=== PATIENT | female | born 1990 | race Caucasian/White ===

== ENCOUNTER 2019-04-20 14:00 | Outpatient (RCR) | payer OTHER, SELFPAY | END 2019-07-11 23:59 | disposition home or self-care (01) | LOC: ANHDMC 14:00 | PROVIDERS: PCP Family Medicine | DX: O24.410 Gestational diabetes mellitus in pregnancy, diet controlled (principal); Z71.89 Other specified counseling; Z3A.00 Weeks of gestation of pregnancy not specified | CPT/HCPCS: G0108 ==

== ENCOUNTER 2020-05-21 12:13 | Outpatient (NON) | payer OTHER, SELFPAY ==
[2020-05-22 12:24] LABS: SARS-CoV-2 RNA PCR Negative
== END 2020-05-21 12:14 ==
LOC: ANHCOVIDDT 12:21
PROVIDERS: Visit Provider Physician Assistant Medical
DX: R05 Cough (principal); J02.9 Acute pharyngitis, unspecified; Z20.828 Contact with and (suspected) exposure to other viral communicable diseases
CPT/HCPCS: 87635; C9803; U0003

== ENCOUNTER 2021-01-16 09:07 | Outpatient (CLI) | payer OTHER, SELFPAY ==
--- NOTE | ~2021-01-16 | US_ITS ---
EXAMINATION: US thyroid DATE: 01/16/2021 09:44 INDICATION: Nontoxic single thyroid nodule. TECHNIQUE: Multiple ultrasound images of the thyroid were obtained. COMPARISON: None. FINDINGS: The right thyroid lobe measures 5.0 x 1.9 x 2.0 cm. The left thyroid lobe measures 4.8 x 1.2 x 2.0 c m. In the right thyroid lobe, there is a 2.7 cm solid, isoechoic, oetrx-fmpe-faod nodule with smooth margin without echogenic foci (TI-RADS TR3). In the left thyroid lobe, there is a 18 mm solid, hypoe choic, aeydj-ydan-htix nodule with lobulated margin and punctate echogenic focus (TR5). IMPRESSION: 1. Multinodular goiter. Ultrasound-guided fine-needle aspiration of 2 nodules is recommended. Reviewed, dictated and finalized at location A. IMPRESSION: 1. Multinodular goiter. Ultrasound-guided fine-needle aspiration of 2 nodules i s recommended.
--- NOTE | ~2021-01-16 | US_ITS ---
US abdomen limited DATE: 01/16/2021 09:45 INDICATION: Right upper quadrant abdominal pain and nausea TECHNIQUE: Real-time imaging and Doppler analysis of the liver, gallbladder, pancreas COMPARISON: 11/05/2017 complete abdominal ultrasound examination FINDINGS: No gallstones or gallbladder wall thickening or pericholecystic fluid collection. Negative sonographic Fish's sign. The common bile duct measures 2.9 mm, normal. No hepatic space-occupying mass lesion. Normal hepatopedal portal venous flow direction. The pancreas is largely obscured by bowel gas. IMPRESSION: Normal liver and gallbladder Pancreas is not optimally evaluated due to overlying bowel gas Reviewed, dictated and finalized at Location A. Reviewed, dictated and finalized at location A.
== END 2021-01-16 09:08 | disposition home or self-care (01) ==
LOC: ANHIMG 09:08
PROVIDERS: PCP Family Medicine; Visit Provider Family Medicine
DX: R10.11 Right upper quadrant pain (principal); E04.2 Nontoxic multinodular goiter
CPT/HCPCS: 76536; 76705

== ENCOUNTER 2021-02-11 11:00 | Outpatient (CLI) | payer OTHER, SELFPAY ==
--- NOTE | ~2021-02-11 | NM_ITS ---
EXAMINATION: NM hepatobiliary wo pharm DATE: 02/11/2021 13:57 INDICATION: Right upper quadrant abdominal pain. COMPARISON: Ultrasound 01/16/2021 TECHNIQUE: 5.2 mCi Tc-99m mebrofenin (Choletec) was administered intravenously. Scintigraphic images of the abdomen were obtained for one hour. Then, the patient drank 8 oz Ensure, and imaging was cont inued for 60 minutes. FINDINGS: There is normal clearance of radiotracer from the blood pool. There is homogeneous tracer u ptake by the liver. Activity progresses to the bowel and gallbladder. Gallbladder ejection fraction (GBEF) was 58%. Note that with this technique, normal GBEF >= 33%. IMPRESSION: 1. Normal hepatobiliary scintigraphy. Reviewed, dictated and finalized at location A.
== END 2021-02-11 11:01 | disposition home or self-care (01) ==
PROVIDERS: PCP Family Medicine; Visit Provider Family Medicine
DX: R10.11 Right upper quadrant pain (principal)
CPT/HCPCS: 78226; A9537

== ENCOUNTER 2021-02-19 09:26 | Outpatient (CLI) | payer OTHER, SELFPAY ==
--- NOTE | ~2021-02-19 | US_ITS ---
EXAMINATION: US FNA w image guidance, US FNA additional DATE: 02/19/2021 10:39 INDICATION: Bilateral nontoxic thyroid nodules TECHNIQUE: A time-out was performed to verify the patient's name, date of , and procedure to be performed . The procedure and its benefits and risks were discussed with the patient. Risks specifically discus sed included bleeding and infection. The patient understood the risks and agreed to proceed. The neck was prepped and draped in the usual sterile manner. Attention was first turned to the left thyroid n odule. 2 mL 1% lidocaine was used for local anesthesia. 6 passes were made with a 25G needle into th e lesion. Appropriate needle location was documented with continuous sonographic guidance. Attention was then turned to the right thyroid nodule. An additional 3 mL 1% lidocaine was used for local anes thesia. 6 passes were made with a 20 5G needle into the lesion utilizing continuous sonographic toro nce. Sterile bandages were applied. There were no immediate complications. FINDINGS: Grayscale ultrasound images demonstrate biopsy needles advanced into a 1.4 cm solid TI RADS 5 left th yroid nodule. Subsequent images demonstrate the biopsy needle advanced into the larger 3.0 cm TI RADS 3 right thyroid nodule. IMPRESSION: 1. Successful ultrasound-guided fine needle aspiration of a 1.4 cm TI RADS 5 left thyroid nodule. 2. Accessible ultrasound-guided fine-needle aspiration of a TI RADS 3 right thyroid nodule. . Reviewed, dictated and finalized at location A. IMPRESSION: 1. Successful ultrasound-guided fine needle aspiration of a 1.4 cm TI RADS 5 l eft thyroid nodule. 2. Accessible ultrasound-guided fine-needle aspiration of a TI RADS 3 right thy roid nodule. .
== END 2021-02-19 09:27 | disposition home or self-care (01) ==
PROVIDERS: PCP Family Medicine; Visit Provider Otolaryngology
DX: E04.2 Nontoxic multinodular goiter (principal)
CPT/HCPCS: 10005; 10006; 88173; 88305

== ENCOUNTER 2022-05-08 11:43 | Observation (INO) | payer OTHER, SELFPAY ==
[2022-05-08 12:11] VITALS: BP 124/66; PULSE 87
[2022-05-08 12:13] VITALS: BMI 40.4
[2022-05-08 12:15] VITALS: BP 132/66; PULSE 83
--- NOTE | 2022-05-08 12:20 | LDADM ---
This patient, Madison Cummings, was admitted to OB Post [facility] on 05/08/22 at 11:43. Plans for labor, pain management and were discussed with patient. Patient/family oriented to hospital policies and general routines including ID bracelet, bed and alarms, visiting hours, pain management, procedures, bathroom and other care routines, personal items, smoking policy, room service/diet and guest tray routines, infant security routines, and visiting hours. Patient/Family are encouraged to report perceived risks to care and to ask questions if they do not understand what they are told or what they should do. See OBIX for further documentation.
[2022-05-08] MEDS: TERBUTALINE SULFATE 1 MG/ML VIAL 0.25 MG SUB-Q (12:48)
--- NOTE | 2022-05-08 14:10 | PC.NURSE ---
Patient came in with a complaint of irvin. NST completed. Per Dr. Escobedo, terbutaline given and patient instructed to eat lunch. After interventions, patient denies feeling any contractions or pain. No contractions picked up on toco or palpated. Dr. Escobedo updated and verbal orders placed for discharge.
--- NOTE | 2022-05-19 12:16 | PM.OBTRLD ---
OB - Triage/Final Diagnosis Visit Information Comments/Additional reasons for admission: I have assessed the risk for this patient, Madison Cummings, and determined that she would benefit from observation care. Final Diagnosis (1) contractions: Code(s): O47.00 - False labor before 37 completed weeks of gestation, unspecified trimester Status: Acute
== END 2022-05-08 14:08 | disposition home or self-care (01) ==
PROVIDERS: Admitting Provider Obstetrics & Gynecology; PCP Family Medicine; Visit Provider Obstetrics & Gynecology
DX: O47.02 False labor before 37 completed weeks of gestation, second trimester (principal); Z3A.27 27 weeks gestation of pregnancy
CPT/HCPCS: 96372; G0378; G0379; J3105

== ENCOUNTER 2022-07-04 16:45 | Outpatient (CLI) | payer OTHER, SELFPAY ==
[2022-07-04] VITALS (7 sets, daily range): BP systolic 120–145; BP diastolic 67–73; PULSE 88–107; BMI 41.2
[2022-07-04] MEDS: KETOROLAC 30 MG/ML VIAL (*BKC) 10 MG IM (17:38)
[2022-07-04 17:47] LABS: Basophils Percent Auto 0.2 % (0.2-1.2); Eosinophils Absolute Auto 0.1 K/mm3 (0-0.3); Eosinophils Percent Auto 0.5 % (0-4.4); Hematocrit 32.8 % (37.0-47.0); Hemoglobin 10.9 g/dL (12.0-15.0); Immature Granulocyte Absolute 0.05 K/mm3 (0.00-0.031); Immature Granulocyte Percent A 0.5 % (0-0.5); Lymphocytes Absolute Auto 1.98 K/mm3 (0.9-3.2); Lymphocytes Percent Auto 19.6 % (18.3-44.2); Mean Corpuscular HGB Conc 33.2 g/dl (32-36); Mean Corpuscular Hemoglobin 29.9 pg (26-34); Mean Corpuscular Volume 90.1 fl (80-100); Mean Platelet Volume 9.9 fl (7.4-10.4); Monocytes Absolute Auto 0.9 K/mm3 (0.1-0.6); Monocytes Percent Auto 9.2 % (2.6-8.5); Neutrophils Absolute Auto 7.1 K/mm3 (1.3-6.7); Platelet Count Result 278 k/mm3 (150-375); Red Blood Count 3.64 M/mm3 (4.2-5.4); Red Cell Distribution Width 13.4 % (11.5-14.5); White Blood Count 10.1 K/mm3 (4.5-10.0)
[2022-07-04 17:48] LABS: Appearance Urine Slightly Cloudy (Clear); Bilirubin Urine Negative (Negative); Blood Urine Negative (Negative); Color Urine Yellow (Yellow); Glucose Urine UA Negative (Negative); Ketones Urine Negative (Negative); Leukocyte Esterase Ur Trace LEU/UL (NEGATIVE); Nitrate Urine Negative (Negative); Protein Urine Negative (Negative); Specific Grav Ur 1.015 (1.001-1.035); Urobilinogen Urine 0.2 mg/dL (<2.0)
--- NOTE | 2022-07-04 17:48 | PC.NURSE ---
Patient arrived on L&D unit with complaints of headache with 5/10 pain that has not improved after taking 1000mg of Tylenol at 1530. Spoke with Dr. Daniel Win regarding patient status. Discussed patient's headache, vitals, and FHT tracing. Verbal orders given for 10mg IM Toradol as well as PIH workup. If labs come back WNL, verbal orders to discharge given per Dr. Daniel Win.
[2022-07-04 17:50] LABS: Add Urine Microscopic? YES; Amorphous Sediment Urine Few; Bacteria Urine Trace /hpf; RBC Urine 0-2 /hpf (0-2); Squamous Epithelial Cell Urine Many /hpf (Few); WBC Urine 0-3 /hpf (0-3)
[2022-07-04 17:54] LABS: Creatinine Urine 37.4 mg/dL; Total Protein Urine Random 12 mg/dL; Ur Ttl Prot Creatinine Ratio 0.32 mg/mg (0-0.20)
[2022-07-04 18:05] LABS: Alanine Aminotransferase 15 U/L (6-35); Alkaline Phosphatase 156 U/L (38-126); Anion Gap 5 mmol/L (8-16); Aspartate Amino Transferase 17 U/L (14-36); Bilirubin,Total 0.3 mg/dL (0.2-1.3); Blood Urea Nitrogen 3 mg/dL (7-17); Calcium 8.6 mg/dL (8.4-10.2); Carbon Dioxide 20 mmol/L (22-30); Chloride 110 mmol/L (98-107); Estimated Glomerular Filt Rate > 60; Glucose 117 mg/dL (65-110); Potassium 3.9 mmol/L (3.4-5.0); Sodium 135 mmol/L (137-145); Uric Acid 4.9 mg/dL (2.5-7.5)
--- NOTE | 2022-07-04 18:40 | PC.NURSE ---
Plan of care discussed with patient. 24 hour urine collection reviewed with patient and instructions provided. Patient states understanding of instructions and plan of care and denies questions. Patient 24 hour urine started now. HIP precautions reviewed with patient and patient provided educational handout prior to leaving. Patient states understanding of instructions and precautions. Patient instructed to follow-up with Dr. Bansal in the office on 07/06/2022, patient states she already has an appointment scheduled with him that day. Patient instructed to return to OB unit if she experiences any worse symptoms or feels she needs to be evaluated sooner.
--- NOTE | 2022-07-04 18:46 | PC.NURSE ---
Notified Dr. Bansal of patient lab results. Order to start a 24 hour urine collection. Patient can complete urine collection for test at home and return the urine when completed. Patient to be instructed to follow-up on Wednesday07/06/2022.
== END 2022-07-04 18:43 | disposition home or self-care (01) ==
LOC: ANHOBOP 16:49 → ANHOBPP 07-09 06:29
PROVIDERS: PCP Family Medicine; Visit Provider Obstetrics & Gynecology
DX: R51.9 Headache, unspecified (principal); O13.9 Gestational [pregnancy-induced] hypertension without significant proteinuria, unspecified trimester; Z3A.00 Weeks of gestation of pregnancy not specified
CPT/HCPCS: 36415; 59025; 80053; 81001; 82570; 84156; 84550; 85025; 87086; 87088; 96372; 99199; J1885

== ENCOUNTER 2022-07-05 18:55 | Outpatient (NON) | payer OTHER, SELFPAY ==
[2022-07-05 19:14] VITALS: BMI 41.2
[2022-07-05 19:39] LABS: Total Volume 24 Hour Urine 4800 ml
[2022-07-05 19:43] LABS: Total Protein Urine Random 14 mg/dL
[2022-07-05 19:44] LABS: Creatinine 24 Hour Urine 1.2 gm/24 (0.8-1.8)
[2022-07-05 20:19] LABS: Total Protein Urine 24 Hr 672 mg/24hr (28-141)
== END 2022-07-05 18:56 | disposition home or self-care (01) ==
LOC: ANHOBOP 19:00
PROVIDERS: PCP Family Medicine; Visit Provider Obstetrics & Gynecology
DX: O13.9 Gestational [pregnancy-induced] hypertension without significant proteinuria, unspecified trimester (principal); Z3A.00 Weeks of gestation of pregnancy not specified
CPT/HCPCS: 81050; 82570; 84156

== ENCOUNTER 2022-07-14 14:42 | Inpatient (IN) | payer OTHER, SELFPAY ==
[2022-07-14 18:25] VITALS: BMI 41.6
[2022-07-14 18:47] LABS: Basophils Percent Auto 0.1 % (0.2-1.2); Eosinophils Absolute Auto 0.1 K/mm3 (0-0.3); Eosinophils Percent Auto 0.4 % (0-4.4); Hematocrit 36.6 % (37.0-47.0); Hemoglobin 12.2 g/dL (12.0-15.0); Immature Granulocyte Absolute 0.06 K/mm3 (0.00-0.031); Immature Granulocyte Percent A 0.5 % (0-0.5); Lymphocytes Absolute Auto 2.35 K/mm3 (0.9-3.2); Lymphocytes Percent Auto 19.6 % (18.3-44.2); Mean Corpuscular HGB Conc 33.3 g/dl (32-36); Mean Corpuscular Hemoglobin 29.3 pg (26-34); Monocytes Absolute Auto 0.8 K/mm3 (0.1-0.6); Monocytes Percent Auto 6.7 % (2.6-8.5); Neutrophils Absolute Auto 8.7 K/mm3 (1.3-6.7); Neutrophils Percent Auto 72.7 % (45.5-73.1); Platelet Count Result 327 k/mm3 (150-375); Red Blood Count 4.16 M/mm3 (4.2-5.4); Red Cell Distribution Width 13.5 % (11.5-14.5)
[2022-07-14] MEDS: LACTATED RINGERS 1,000 ML 125 ML IV CONT (18:52)
[2022-07-14] MEDS: CLINDAMYCIN 900 MG/D5W 50 ML 900 MG/50 ML PIGGYBACK 50 MG IVPB (18:53)
--- NOTE | 2022-07-14 20:01 | WPDANESEPP ---
Anes - Eval Pre Procedure Procedure: Labor epidural Date/Time: 07/14/22 20:01 Surgeon: Fanny Preop Diagnosis: Abdominal pain with contractions Pre Op Diagnosis: Labor Patient Data Age: 31 Gender: F Height: 1.63 m Weight: 110 kg Last Vital Signs O2 Del Method Room Air 07/14/22 18:25 Allergies Allergy/AdvReac Type Severity Reaction Status Date / Time amoxicillin Allergy Unknown Hives Verified 07/14/22 14:32 cephalexin Allergy Unknown Skin Verified 07/14/22 14:32 Reaction Penicillins Allergy Unknown Skin Verified 07/14/22 14:32 Reaction Home Medications Medication Instructions Recorded Confirmed Type prenat.vits,tyrell,ybr-pvhd-[id number] 1 tablet PO DAILY 04/17/22 07/14/22 History Laboratory Tests 07/14/22 07/14/22 07/14/22 18:34 18:34 18:34 WBC 12.0 K/mm3 H K/mm3 (4.5-10.0) RBC 4.16 M/mm3 L M/mm3 (4.2-5.4) Hgb 12.2 g/dL g/dL (12.0-15.0) Hct 36.6 % L % (37.0-47.0) MCV 88.0 fl fl (80-100) MCH 29.3 pg pg (26-34) MCHC 33.3 g/dl g/dl (32-36) RDW 13.5 % % (11.5-14.5) Plt Count 327 k/mm3 k/mm3 (150-375) MPV 10.0 fl fl (7.4-10.4) Immature Gran % (Auto) 0.5 % % (0-0.5) Neut % (Auto) 72.7 % % (45.5-73.1) Lymph % (Auto) 19.6 % % (18.3-44.2) Gallia % (Auto) 6.7 % % (2.6-8.5) Eos % (Auto) 0.4 % % (0-4.4) Baso % (Auto) 0.1 % L % (0.2-1.2) Lymph # (Auto) 2.35 K/mm3 K/mm3 (0.9-3.2) Gallia # (Auto) 0.8 K/mm3 H K/mm3 (0.1-0.6) Eos # (Auto) 0.1 K/mm3 K/mm3 (0-0.3) Baso # (Auto) 0.0 K/mm3 K/mm3 (0.0-0.1) Abs Immat Gran (auto) 0.06 K/mm3 H K/mm3 (0.00-0.031) Absolute Neuts (auto) 8.7 K/mm3 H K/mm3 (1.3-6.7) Absolute Nucleated RBC 0.0 K/mm3 K/mm3 (0.0-0.012) Nucleated RBC % 0.0 % % (0.0-0.2) RPR Pending Blood Type Pending Antibody Screen Pending : gestational age HCG: positive Patient hx anesthesia problems: none Family hx anesthesia problems: none Results Review: All pre-operative results and documents have been reviewed as part of the pre-operative evaluation. [facility] Past Medical History Medical History Anxiety and depression Gestational diabetes Obesity and not yet delivered Psoriasis Family History Family History Grandparent Uterine cancer Father Hypertension High cholesterol Mother FH: cholecystectomy Social History Social History Smoking status: Never smoker Substance use: never Lack of Transportation: No Lack of Food: Never True Current Housing: I Have Housing Concerned About Future Housing: No Difficulty Paying Gas/Electric Bills: No Difficulty Paying for Meds: No Currently Unemployed: No Education: Bachelor's Degree Difficulty w/ Childcare or Family Care: No Spiritual care concerns: No Exam Day of Procedure 07/14/22 20:01 Patient weight: morbidly obese Airway: Mallampati scale class II
[2022-07-15] VITALS (89 sets, daily range): BP systolic 74–161; BP diastolic 32–120; PULSE 25–147; RESP 16–18; TEMP 36.4–36.9; O2SAT 72–100
[2022-07-15] MEDS: CALCIUM CARBONATE (TUMS) 500 MG (200 MG ELEMENTAL) PO ×2 (01:10→16:56)
--- NOTE | 2022-07-15 07:53 | PM.IMHP ---
H&P: HPI History of Present Illness Date/Time: 07/15/22 07:53 Chief Complaint: labor Narrative: this is a 31 year 3 para 0202 whose last menstrual period was September 2026 EDC is 08/07/2022 confirmed by 8 week ultrasound, presents at 30 7 weeks gestation active labor. has been uncomplicated. She has had 2 previous spontaneous vaginal deliveries 1 complicated by HELLP syndrome she has changed her cervix from 3-5 cm on admission. She is interested in an epidural. [facility] Past Medical History Medical History Anxiety and depression Gestational diabetes Obesity and not yet delivered Psoriasis Family History Family History Grandparent Uterine cancer Father Hypertension High cholesterol Mother FH: cholecystectomy Social History Social History Smoking status: Never smoker Substance use: never Lack of Transportation: No Lack of Food: Never True Current Housing: I Have Housing Concerned About Future Housing: No Difficulty Paying Gas/Electric Bills: No Difficulty Paying for Meds: No Currently Unemployed: No Education: Bachelor's Degree Difficulty w/ Childcare or Family Care: No Spiritual care concerns: No Meds Home Medications and Allergies Home Medications Medication Instructions Recorded Confirmed Type prenat.vits,tyrell,avn-nvhb-dzomh 1 tablet PO DAILY 04/17/22 07/14/22 History Allergies Allergy/AdvReac Type Severity Reaction Status Date / Time amoxicillin Allergy Unknown Hives Verified 07/14/22 14:32 cephalexin Allergy Unknown Skin Verified 07/14/22 14:32 Reaction Penicillins Allergy Unknown Skin Verified 07/14/22 14:32 Reaction Vital Signs Vital Signs - 24 hr 07/14/22 18:25 07/15/22 01:52 07/15/22 01:53 Temperature Pulse Rate 92 Blood Pressure 125/74 Pulse Oximetry 99 Oxygen Delivery Room Air 07/15/22 02:00 Temperature 97.5 F L Pulse Rate Blood Pressure Pulse Oximetry Oxygen Delivery Exam Const: General: cooperative, healthy appearing and comfortable Nutritional Appearance: overweight Orientation/consciousness: oriented to person, oriented to place and oriented to time HENMT: Head: normal to inspection Resp: Effort & Inspection: normal respiratory effort Cardio: Rate: regular rate Rhythm: regular rhythm Heart sounds: S1 normal heart sound present and S2 normal heart sound present GI: Inspection: normal to inspection : External Female Exam: normal external appearance Speculum Exam - Vagina: normal appearance of the vagina Speculum Exam - Cervix: normal appearance of the cervix ( Cervix 5/90/1. AROM clear. FHTs were reassuring) H&P: Results Labs Labs: Short CBC 07/14/22 Range/Units 18:34 WBC 12.0 H (4.5-10.0) K/mm3 Hgb 12.2 (12.0-15.0) g/dL Hct 36.6 L (37.0-47.0) % Plt Count 327 (150-375) k/mm3 Assessment and Plan Assessment and plan (1) Active labor at term: Status: Acute Plan spontaneous vaginal delivery is expected. She has an epidural candidate
[2022-07-15] MEDS: LACTATED RINGERS 1,000 ML 125 ML IV CONT ×2 (08:06→08:41)
[2022-07-15] MEDS: fentaNYL CITRATE INJ (*CRX) 100 MCG/2 ML VIAL IV PUSH (08:07)
[2022-07-15 09:52] LABS: Rapid Plasma Reagin Non-Reactive (NonReactive)
--- NOTE | 2022-07-15 10:14 | PM.OBPRVD ---
OB - Delivery Note Procedure Delivery date: 07/15/22 Induction method: None Delivery augmentation: Rupture of Membranes and Pitocin Delivery monitor: Internal FHT and Internal Uterine Route of delivery: Episiotomy description: None Laceration Description: None Quantitative Blood Loss (ml): 60 Anesthesia type: Epidural Disposition: Floor Baby Date of : 07/15/22 Time of : 10:06 Weeks of gestation at delivery: 36 gender: Female presentation: vertex position: Right Occiput Posterior Placenta delivery description: Spontaneous Cord Vessel Description: 3 Vessels, Nuchal Cord, Loose and Delayed Cord Clamping score one minute: 8 score five minutes: 9 Narrative: clinda x 1
[2022-07-15] MEDS: OXYTOCIN 30 UNITS/NS 500 ML 30 UNITS/500 ML BAG 125 UNITS IV CONT (12:00)
--- NOTE | 2022-07-15 12:44 | PC.NURSE ---
Patient transferred to post room #279 via wheelchair. Support person present. Oriented to unit, room, information board, rooming in, admission packet and security measures. Patient verbalizes understanding.
[2022-07-15] MEDS: SODIUM CHLORIDE 0.9% IV 300 ML 600 ML I-UTERINE (12:56)
[2022-07-15] MEDS: IBUPROFEN 600 MG TABLET PO ×2 (13:12→21:10)
[2022-07-16 03:04] VITALS: BP 106/62; PULSE 75; RESP 16; TEMP 36.6; O2SAT 97
[2022-07-16] MEDS: IBUPROFEN 600 MG TABLET PO ×3 (03:45→17:32)
[2022-07-16 05:26] LABS: Hematocrit 29.7 % (37.0-47.0); Hemoglobin 9.9 g/dL (12.0-15.0)
[2022-07-16 07:30] VITALS: BP 129/79; PULSE 78; RESP 20; TEMP 36.5; O2SAT 100
--- NOTE | 2022-07-16 07:30 | PC.NURSE ---
PT introductions made and plan of care discussed per post , pain management, breast feeding, daily care activities. PT and spouse both recipients of such instructions and no barriers to learning identified at this time. PT received such instructions this shift via one to one discussion, mom baby care guide and demonstrations. PT verbalized understanding of such care.
--- NOTE | 2022-07-16 07:39 | PM.DS ---
DS: Admitting Diagnosis Discharge Date 07/16/2022 Admitting Diagnosis Pre term labor DS: Discharge Diagnosis Discharge Diagnosis (1) labor with term delivery: Code(s): O60.20X0 - Term delivery with labor, unspecified trimester, not applicable or unspecified Status: Acute DS: Summary Hospital Course Reason for hospitalization: active labor at 36 and 5 7th weeks gestation Hospital Course: the patient was admitted at 36 and 5 7th weeks gestation on 07/15/2022. She underwent spontaneous vaginal delivery with a dose of clindamycin and epidural anesthesia. Her 48hour course was unremarkable. She remained afebrile. She was up, voiding without difficulty, ambulated, breast-feeding, voiding without difficulty, generally without complaints. Time Spent with Patient Time attestation: Total time spent providing and/or coordinating discharge services: Exam Const: General: cooperative, healthy appearing, comfortable and overweight Orientation/consciousness: oriented to person, oriented to place and oriented to time HENMT: Head: normal to inspection Resp: Effort & Inspection: normal respiratory effort Cardio: Rate: regular rate Rhythm: regular rhythm Heart sounds: S1 normal heart sound present and S2 normal heart sound present GI: Inspection: normal to inspection ( Fundus firm below the umbilicus) DS: Data Data Completed and Pending Labs on day of discharge: Labs from last 24 hours 07/16/22 07/14/22 03:45 18:34 Hgb 9.9 L Hct 29.7 L RPR Non-reactive Discharge Plan Discharge Attending physician on discharge: Varun Ball Discharging Clinician: Varun Ball Patient Disposition: Home, Self-Care Activity: may shower, no straining and pelvic rest Diet: heart healthy Wound Care Instructions: follow printed instructions Discharge Instructions: Education: Mom and Baby Guide Given to: Mother Follow-Up: Call your delivering provider's office for an appointment to be seen in: 4 Weeks Mom [facility] follow-up [facility]. Appointment Date/Time: July 18, 2022 at 10:00 am What to expect at your follow-up visit: Blood Pressure Check Call [phone] if you are unable to keep your appointment time. BREAST CARE: * Wear a snug supportive bra. * For engorgement discomfort: Breast Feeding: * Apply warm moist washcloths * Express milk as needed to relieve engorgement * Wear loose clothing Bottle Feeding: * May apply ice packs * For sore nipples: * Identify correct latch-on * Apply warm moist washcloths before and after nursing * Air dry nipples after nursing * May apply Lansinoh cream to nipples PERINEAL CARE: * Until bleeding stops, use your sukumar bottle after urinating * Change your pad frequently throughout the day * You may take sitz baths several times a day (fill your bathtub with warm water and soak for 20 minutes.) Do NOT bathe in the water * No tub baths until seen by your physician - You may shower ACTIVITY: * Rest as much as possible. * Do not exercise or lift anything heavier than your baby (such as laundry or other children.) * Avoid stairs or driving as much as possible. * Do not put anything into the vagina. No douching, tampons, or sexual activity until seen by physician. NOTIFY PHYSICIAN IF YOU HAVE ANY QUESTIONS OR IF ANY OF THE FOLLOWING SYMPTOMS OCCUR: * If your perineum becomes red, swollen, or more painful than what you have experienced in the hospital. * If your vaginal bleeding becomes foul smelling. * If your vaginal bleeding becomes more heavy than a period or if your bleeding changes from pink to bright red. However, you may pass an occasional walnut-sized clot once or twice for the first week . * If you experience a sharp, shooting pain in you calves. * If
--- NOTE | 2022-07-16 07:42 | PM.OBPNVD ---
OB - PN: Subj Subjective Date/time seen: 07/16/22 07:42 Patient comments: no complaints and pain well controlled baby status: doing well and nursing well OB - PN: Obj Data Labs 07/16/22 03:45 Labs: Laboratory Results - last 24 hr 07/14/22 07/16/22 18:34 03:45 Hgb 9.9 L Hct 29.7 L RPR Non-reactive OB - PN A/P Plan day: 1 Plan: routine care Time Spent With Patient Time: Total time spent is greater than 50% in coordination of care (as documented) at patient's floor/unit and/or counseling patient: Time with patient: less than 15 minutes Exam Const: General: cooperative, healthy appearing, comfortable and overweight Orientation/consciousness: oriented to person, oriented to place and oriented to time HENMT: Head: normal to inspection Resp: Effort & Inspection: normal respiratory effort GI: Inspection: normal to inspection ( fundus firm below the umbilicus)
--- NOTE | 2022-07-16 10:32 | PC.NURSE ---
[id number] Introductions were made, then consulted with patient to assess needs related to . Mother led the conversation with her?plans to feed?her infant, the?experience so far and her experience with her previous infants that were . Resources provided for inpatient and outpatient services with a mom/baby guide. Mother voiced understanding of information and is receptive to conversation regarding her infant that is not waking to eat. Mother works well with her infant, demonstrates many abilities to stimulate her infant to wake, supports her breast and she was encouraged to wait for a big, open, wide gape before latching. Mother states she has breastfed with no pain. Reviewed signs of adequate intake using the pie demonstration, output, jaundice, late behaviors, blood sugars and waking to breastfeed every 2-3 hours. Mother demonstrated understanding of hand expression for milk stimulation and encouraging to breastfeed. Mother voiced understanding to call if she has difficulty waking to effectively breastfeed, if there is pain with the latch and that she is confident with . Reported to the primary RN.
[2022-07-16] MEDS: DOCUSATE SODIUM 100 MG CAPSULE PO ×2 (11:02→17:32)
[2022-07-16] MEDS: MULTIVIT/MIN/PREN/FOL AC/IRON TABLET 1 TAB PO (11:02)
[2022-07-16] MEDS: ACETAMINOPHEN 325 MG TABLET 650 MG PO ×2 (11:03→17:34)
[2022-07-16] MEDS: POLYSACCHARIDE IRON COMPLEX 150 MG CAPSULE PO ×2 (11:03→17:34)
[2022-07-16] MEDS: LANOLIN (LANSINOH) 7.5 GM CREAM 1 APPLIC TOPICAL (11:04)
--- NOTE | 2022-07-16 13:35 | PC.NURSE ---
[id number] Patient called RN to the room to assess latch. Upon entering the room was crying and mother states the latch was just missed. Mother made several attempts to breastfeed with her late infant. Mother hand expresses milk to the infant. is either crying, resting with a closed mouth or mother is attempting to latch. Mother waits for a big, open mouth;however, doesn't open wide enough with the tongue down to latch optimally most of the time. Mother acknowledges understanding by demonstrating great efforts to latch her infant. latched optimally once, had one suck with a swallow, then stopped and let go of the nipple. Encouraged mother to change positioning while learning related to the misshaped nipple after a latch with mother attempting to shove more breast into 's mouth. Mother is confident to continue practicing. Reviewed milk production and calling for a latch assessment, if infant doesn't wake to , doesn't maintain latch with a suck/swallow ratio or there's pain with the latch. Reported to the Primary RN.
--- NOTE | 2022-07-16 14:31 | PC.NURSE ---
[id number] Consulted with patient to assess needs related to . Mother led conversation with her experience with feeding baby so far. Mother works well with her infant with encouragement. Reviewed working with , supporting breast and how to protect the nipples with an optimal deep latch, good positioning, and good hand washing. Encouraged understanding the benefits of skin to skin, hand expression, responding to feeding cues, frequencies of feeding 8-12 times in 24 hours (approximately 2-3 hours), duration of feedings, milk production, intake/output feeding sheet and signs of adequate intake encouraging swallowing at the breast. Reviewed positioning and alignment, supporting breast, off-centered (asymmetrical latch) and leading with the chin with big, open, wide gape. latched shallow and was sleepy and reluctant. A feeding was charted at 1300 but patient didn't call for an assessment. Nipple care reviewed with optimal latch, good positioning and using clean hands when feeding her and touching her breast. Mother held infant to her chest while hand expressed colostrum. was spoon fed 10mls of colostrum allowing to use her tongue to lap up the milk. was placed skin to skin, mother was encouraged to feeding infant every 2 hours in the daytime, every 3 at night. Reviewed milk production with , hand expression or pumping. Reviewed the many options of feeding her baby and encouraged paced bottle feeding if she uses a bottle. Risks and benefits were discussed regarding use of pacifier, bottle and late behaviors and care. Resources used to facilitate learning were used from the tool/mom and baby guide. Mother voiced understanding of the education shared, to call for assistance if the infant does not latch or if there is discomfort with . Reported to the primary RN.
[2022-07-16 19:20] VITALS: BP 126/59; PULSE 82; RESP 18; TEMP 36.9; O2SAT 100
[2022-07-17 07:23] VITALS: BP 119/63; PULSE 71; RESP 16; TEMP 36.7; O2SAT 99
--- NOTE | 2022-07-17 07:43 | PC.NURSE ---
PT introductions made and plan of care discussed per post , pain management, breast feeding, daily care activities and pending discharge to home. PT and spouse both recipients of such instructions and no barriers to learning identified at this time. PT received such instructions this shift via one to one discussion, mom baby care guide and demonstrations. PT verbalized understanding of such care.
--- NOTE | 2022-07-17 08:56 | PM.OBPNVD ---
OB - PN: Subj Subjective Date/time seen: 07/17/22 08:56 Patient comments: no complaints and pain well controlled baby status: doing well and nursing well OB - PN: Obj Data Labs 07/16/22 03:45 OB - PN A/P Plan day: 2 Plan: routine care, discharge home and follow up 6 weeks Time Spent With Patient Time: Total time spent is greater than 50% in coordination of care (as documented) at patient's floor/unit and/or counseling patient: Time with patient: less than 15 minutes Exam Resp: Effort & Inspection: normal respiratory effort Cardio: Rate: regular rate Rhythm: regular rhythm Heart sounds: S1 normal heart sound present and S2 normal heart sound present GI: Inspection: normal to inspection
[2022-07-17] MEDS: ACETAMINOPHEN 325 MG TABLET 650 MG PO (09:33)
[2022-07-17] MEDS: MULTIVIT/MIN/PREN/FOL AC/IRON TABLET 1 TAB PO (09:33)
[2022-07-17] MEDS: POLYSACCHARIDE IRON COMPLEX 150 MG CAPSULE PO (09:33)
[2022-07-17] MEDS: DOCUSATE SODIUM 100 MG CAPSULE PO (09:33)
[2022-07-17] MEDS: IBUPROFEN 600 MG TABLET PO (09:34)
--- NOTE | 2022-07-17 10:15 | PC.NURSE ---
Pt received discharge instructions per protocol and verbalized understanding of such care.
--- NOTE | 2022-07-17 10:42 | PC.NURSE ---
[id number] Mother led the conversation with her experience, plan to feed her so far and her ability to independently latch optimally without discomfort. Encouraged RN latch assessment. Mother latched to the left breast using cross cradle. RN visualizes mouth less than 90 degrees, infant is sleepy, reluctant and rare suck/swallow. Infant was detached and nipple was misshaped. Mother will latch to the left breast using the football positioning. Infant effectively latched and had an adequate suck/swallow ratios. Mother was encouraged to keep actively . Discussion was initiated related to the 's jaundice increasing and no stool since 0700 07/16/2022. Discussed with mother the importance of getting to latch optimally with effective to improve stooling. Discussed the risks and benefits of bottle feeding. Reviewed milk production, hand expression and pumping. Risks and benefits were discussed regarding pumping and mother states she is familiar with pumping because she has a history of that practice with her other children. Mother understands stimulating to eat if needed. meets the outcomes for weight, output (4 stools before 07/16 0700 with sofa inspector exam done for the day) and jaundice at this time. Mother states she is confident to continue effectively , will pump and feed if doesn't latch well, and she is prepared to supplement with formula going home with her if it is needed. Mother has been hand expressing colostrum and feeding her . She is requesting to pump at this time. Breast pump provided due to mothers request. Instructions given on cleaning, care, usage, that there should be no pain, pumping schedule for milk production, collection, and storage of human milk. Mother is encouraged to record pumping schedule on the feeding sheet. Patient was assessed for correct placement, flange size, to pump for comfort and nipple stretching/stimulation for adequate milk production every 3 hours (8 times in 24 hours) 1-2 times at night. 10mls of human milk expressed was paced bottle fed to the . Reinforced understanding of milk production, transition of milk, signs of adequate intake, transition of stool, prevention/relief of engorgement, responsive watching for feeding cues, the different methods of stimulating to breastfeed 2-3 hours after the start of the last feeding, community resources, medication information reviewed per [facility] and when to call a provider using the resource of the mom and baby guide. Mother voiced understanding of the education shared. Reported to the primary RN.
--- NOTE | 2022-07-17 11:00 | PC.NURSE ---
PT discharged to home ambulatory accompanied by spouse and and taken to waiting car. Follow up appts confirmed
[2022-07-18 10:37] VITALS: BP 131/67; PULSE 85; RESP 18; TEMP 36.9; O2SAT 100
== END 2022-07-17 11:00 | disposition home or self-care (01) | DRG 807 ==
LOC: ANHLDR 17:54 → ANHOB2 07-15 12:46
PROVIDERS: Obstetrics & Gynecology; Admitting Provider Obstetrics & Gynecology; PCP Family Medicine; Visit Provider Obstetrics & Gynecology
DX: O60.14X0 Preterm labor third trimester with preterm delivery third trimester, not applicable or unspecified (principal); Z37.0 Single live birth; Z3A.36 36 weeks gestation of pregnancy; O36.8330 Maternal care for abnormalities of the fetal heart rate or rhythm, third trimester, not applicable or unspecified; O69.81X0 Labor and delivery complicated by cord around neck, without compression, not applicable or unspecified
CPT/HCPCS: 36415; 85014; 85018; 85025; 86592; 86850; 86900; 86901; A9270; J2590; J2795; J3010; J7030; J7120

== ENCOUNTER 2023-02-11 17:51 | Emergency (ER) | payer OTHER, SELFPAY ==
--- NOTE | 2023-02-11 17:56 | ED.URI ---
HPI - URI/Sore Throat General Chief Complaint: Upper Respiratory Infection Stated Complaint: Cold symptoms;Ear ache Time Seen by Provider: 02/11/23 17:56 Source: patient Mode of arrival: ambulatory Limitations: no limitations History of Present Illness HPI Narrative: Patient is a 32-year-old female who presents with 1 week of congestion, sore throat, productive cough and ear pain/pressure. Denies any fevers, chills, nausea, vomiting, diarrhea. Patient has been taking DayQuil, NyQuil, Sudafed and does take a daily Claritin. Patient is also had a hoarse voice. Patient reports cough has been keeping her up at night. Related Data Home Medications Medication Instructions Recorded Confirmed escitalopram oxalate 10 mg tablet 10 mg PO 11/19/22 11/19/22 Allergies Allergy/AdvReac Type Severity Reaction Status Date / Time amoxicillin Allergy Unknown Hives Verified 11/19/22 15:53 cephalexin Allergy Unknown Skin Verified 11/19/22 15:53 Reaction Penicillins Allergy Unknown Skin Verified 11/19/22 15:53 Reaction Review of Systems Review of Systems: All systems reviewed & are unremarkable except as noted in HPI and below Constitutional: Constitutional: Denies body ache(s), Denies chills, Denies fatigue, Denies fever(s), Denies headache(s), Denies malaise and Denies weakness Eyes: Eyes: Denies blurry vision, Denies itchy eyes and Denies loss of vision ENT: Reports otalgia, Denies headache(s), Reports hoarseness, Reports nasal congestion, Denies sinus pain and Reports sore throat Cardiovascular: Cardiovascular: Denies chest pain, Denies irregular heart rhythm and Denies dyspnea Respiratory: Respiratory: Reports cough and Denies dyspnea Gastrointestinal: Gastrointestinal: Denies abdominal pain, Denies diarrhea, Denies nausea and Denies vomiting Musculoskeletal: Musculoskeletal: Denies back pain, Denies myalgias and Denies arthralgias Integumentary/Breasts: Skin/Breast: Denies pruritus and Denies rash Neurologic: Denies headache(s), Denies loss of vision and Denies weakness Psychiatric: Psychiatric: Reports no additional psychiatric complaints Endocrine: Endocrine: Denies fatigue Allergic/Immunologic: Allergic/Immunologic: Denies itchy eyes PMFSH Past Medical History Medical History Anxiety and depression Gestational diabetes Obesity and not yet delivered Psoriasis Family History Family History Grandparent Uterine cancer Father Hypertension High cholesterol Mother FH: cholecystectomy Social History Social History Smoking status: Never smoker Substance use: never Lack of Transportation: No Lack of Food: Never True Current Housing: I Have Housing Concerned About Future Housing: No Difficulty Paying Gas/Electric Bills: No Difficulty Paying for Meds: No Currently Unemployed: No Education: Bachelor's Degree Difficulty w/ Childcare or Family Care: No Spiritual care concerns: No Comments At time of signature, agree with nursing past medical, surgical, social and family history. There is no relevant family history pertinent to the presenting complaint. Exam Const: General: cooperative, healthy appearing, comfortable, no acute distress and well nourished Nutritional Appearance: well nourished Orientation/consciousness: patient oriented x3 Limitations: no limitations HENMT: Head: normal to inspection, normocephalic and atraumatic Ears: hearing grossly normal bilaterally, external ears normal, TM's normal bilaterally, EAC's normal and no periauricular adenopathy Face/Nose/Sinus: Normal external nose present, Abnormal mucous membranes and turbinates present erythematous bilateral and diffuse, normal facial exam, sinuses nontender and face symmetric Face and sinus: normal facial exam, sinuses nontender
[2023-02-11 17:58] VITALS: BP 114/94; PULSE 71; RESP 16; TEMP 36.6; O2SAT 99
== END 2023-02-11 18:17 | disposition home or self-care (01) ==
PROVIDERS: Emergency Provider Nurse Practitioner Family; PCP Family Medicine
DX: J06.9 Acute upper respiratory infection, unspecified (principal); R05.9 Cough, unspecified; F41.9 Anxiety disorder, unspecified; F32.A Depression, unspecified; E66.9 Obesity, unspecified; Z68.36 Body mass index [BMI] 36.0-36.9, adult; L40.9 Psoriasis, unspecified
CPT/HCPCS: 99213; G0463

== ENCOUNTER 2023-04-13 08:16 | Outpatient (CLI) | payer OTHER, SELFPAY ==
[2023-04-13 19:58] LABS: Alanine Aminotransferase 18 U/L (6-35); Albumin Level 4.2 g/dL (3.5-5.1); Alkaline Phosphatase 118 U/L (38-126); Anion Gap 5 mmol/L (8-16); Aspartate Amino Transferase 25 U/L (14-36); Bilirubin,Total 0.7 mg/dL (0.2-1.3); Blood Urea Nitrogen 11 mg/dL (7-17); Calcium 9.2 mg/dL (8.4-10.2); Carbon Dioxide 29 mmol/L (22-30); Chloride 102 mmol/L (98-107); Cholesterol 184 mg/dL (0-200); Estimated Glomerular Filt Rate > 60; Glucose 96 mg/dL (65-110); HDL Direct 46 mg/dL; Potassium 5.3 mmol/L (3.4-5.0); Sodium 136 mmol/L (137-145); Triglycerides 128 mg/dL (<150)
[2023-04-13 20:08] LABS: LDL Cholesterol Direct 107 mg/dL
[2023-04-13 20:20] LABS: Thyroid Stimulating Hormone 0.791 uIU/mL (0.465-4.680)
[2023-04-13 20:49] LABS: Basophils Percent Auto 0.1 % (0.2-1.2); Eosinophils Absolute Auto 0.1 K/mm3 (0-0.3); Eosinophils Percent Auto 0.7 % (0-4.4); Hematocrit 43.4 % (37.0-47.0); Hemoglobin 14.2 g/dL (12.0-15.0); Immature Granulocyte Absolute 0.02 K/mm3 (0.00-0.031); Immature Granulocyte Percent A 0.3 % (0-0.5); Lymphocytes Absolute Auto 1.73 K/mm3 (0.9-3.2); Lymphocytes Percent Auto 23.8 % (18.3-44.2); Mean Corpuscular HGB Conc 32.7 g/dl (32-36); Mean Corpuscular Volume 91.6 fl (80-100); Mean Platelet Volume 9.9 fl (7.4-10.4); Monocytes Absolute Auto 0.6 K/mm3 (0.1-0.6); Monocytes Percent Auto 8.5 % (2.6-8.5); Neutrophils Absolute Auto 4.8 K/mm3 (1.3-6.7); Neutrophils Percent Auto 66.6 % (45.5-73.1); Platelet Count Result 326 k/mm3 (150-375); Red Blood Count 4.74 M/mm3 (4.2-5.4); Red Cell Distribution Width 12.4 % (11.5-14.5); White Blood Count 7.3 K/mm3 (4.5-10.0)
[2023-04-13 22:36] LABS: Hemoglobin A1C 5.3 % (<5.7)
== END 2023-04-13 08:17 | disposition home or self-care (01) ==
LOC: ANHGOSHLAB 08:17
PROVIDERS: PCP Family Medicine; Visit Provider Family Medicine
DX: E04.2 Nontoxic multinodular goiter (principal); E66.9 Obesity, unspecified
CPT/HCPCS: 36415; 80053; 80061; 83036; 84443; 85025

== ENCOUNTER 2023-11-09 13:18 | Outpatient (CLI) | payer OTHER, SELFPAY ==
[2023-11-09 20:30] LABS: Alanine Aminotransferase 13 U/L (6-35); Albumin Level 4.2 g/dL (3.5-5.1); Alkaline Phosphatase 125 U/L (38-126); Anion Gap 6 mmol/L (4-12); Aspartate Amino Transferase 25 U/L (14-36); Bilirubin,Total 0.4 mg/dL (0.2-1.3); Blood Urea Nitrogen 17 mg/dL (7-17); Calcium 9.4 mg/dL (8.4-10.2); Carbon Dioxide 28 mmol/L (22-30); Chloride 105 mmol/L (98-107); Estimated Glomerular Filt Rate > 60; Glucose 91 mg/dL (65-110); Potassium 4.8 mmol/L (3.4-5.0); Sodium 139 mmol/L (137-145)
[2023-11-09 20:33] LABS: Free T4 Free Thyroxine 1.12 ng/mL (0.78-2.19)
[2023-11-09 21:05] LABS: Thyroid Stimulating Hormone 0.694 uIU/mL (0.465-4.680)
== END 2023-11-09 13:19 | disposition home or self-care (01) ==
LOC: ANHGOSHLAB 13:19
PROVIDERS: PCP Family Medicine; Visit Provider Family Medicine
DX: E04.2 Nontoxic multinodular goiter (principal)
CPT/HCPCS: 36415; 80053; 84439; 84443

== ENCOUNTER 2023-11-09 13:44 | Outpatient (CLI) | payer OTHER, SELFPAY ==
--- NOTE | ~2023-11-09 | US_ITS ---
EXAMINATION: US thyroid DATE: 11/09/2023 14:01 INDICATION: Nontoxic multinodular goiter. TECHNIQUE: Multiple ultrasound images of the thyroid were obtained. COMPARISON: Ultrasound 01/16/2021 FINDINGS: The right thyroid lobe measures 5.5 x 3.1 x 2.2 cm. The left thyroid lobe measures 4.0 x 1.9 x 1.6 c m. In the right thyroid lobe, there is a 3.6 cm solid, hypoechoic, wider than tall nodule with cortney h margins without echogenic foci (TI-RADS TR4), stable from 01/16/21 when biopsy was benign. In the le ft thyroid isthmus, there is a 1.6 cm solid, hypoechoic, wider than tall nodule with smooth margins w ithout echogenic foci (TR4), stable from 01/16/21 when biopsy was benign. In the left thyroid lobe, th ere is an 11 mm solid, isoechoic, wider than tall nodule with ill-defined margin without echogenic fo ci (TR3). IMPRESSION: 1. Multinodular goiter, likely not clinically significant. No follow-up is needed. Reviewed, dictated and finalized at location A. IMPRESSION: 1. Multinodular goiter, likely not clinically significant. No follow-up is need ed.
== END 2023-11-09 13:45 ==
LOC: GOSHIMG 13:47
PROVIDERS: PCP Family Medicine; Visit Provider Family Medicine
DX: E04.2 Nontoxic multinodular goiter (principal)
CPT/HCPCS: 76536

== ENCOUNTER 2024-02-24 14:34 | Outpatient (CLI) | payer OTHER, SELFPAY ==
[2024-02-24 19:47] LABS: Lithium < 0.2 mmol/L (0.6-1.2)
== END 2024-02-24 14:35 | disposition home or self-care (01) ==
LOC: ANHGOSHLAB 14:35
PROVIDERS: PCP Family Medicine; Visit Provider Student in an Organized Health Care Education/Training Program
DX: F41.9 Anxiety disorder, unspecified (principal); F32.9 Major depressive disorder, single episode, unspecified
CPT/HCPCS: 36415; 80178

== ENCOUNTER 2024-12-21 12:09 | Outpatient (CLI) | payer OTHER, SELFPAY ==
--- NOTE | ~2024-12-21 | US_ITS ---
COMPLETE ABDOMINAL ULTRASOUND Ordering provider: VICENTE Haynes History: . R10.9 - Unspecified abdominal pain . Comparison: None. FINDINGS: LIVER: Normal size and increased echotexture. The liver measures 17 cm. No focal hepatic lesions or p erihepatic fluid collections are identified. GALLBLADDER: Cholelithiasis. No evidence for sludge, gallbladder wall thickening or pericholecystic f luid collections. A negative sonographic Fish's sign was noted. BILIARY DUCTS: No evidence for intra or extrahepatic biliary dilation. Common bile duct measures 3 mm in diameter which is within normal limits. PANCREAS: Normal echotexture and size of the visualized portions. SPLEEN: Normal size, echotexture and contour and measures 11.7 cm in length. KIDNEYS: Right measures 10.7x 4.5x 4.7 cm in length and the left 11.8x 5x 5.2 cm in length. There is no evidence for hydronephrosis, solid renal mass, renal calculi or perinephric fluid collections. No renal cysts. UPPER ABDOMINAL AORTA: Normal in caliber. IVC: Patent. FREE FLUID: None. IMPRESSION: Cholelithiasis. Fat infiltration of the liver. Otherwise, normal complete ultrasound of the abdomen. Reviewed, dictated and finalized at location A. IMPRESSION: Cholelithiasis. Fat infiltration of the liver. Otherwise, normal complete ultra sound of the abdomen.
== END 2024-12-21 12:10 | disposition home or self-care (01) ==
LOC: GOSHIMG 12:09
PROVIDERS: PCP Nurse Practitioner Family; Visit Provider Nurse Practitioner Family
DX: K80.20 Calculus of gallbladder without cholecystitis without obstruction (principal); K76.0 Fatty (change of) liver, not elsewhere classified
CPT/HCPCS: 76700

== ENCOUNTER 2025-01-05 10:57 | Outpatient (CLI) | payer OTHER, SELFPAY ==
--- OUTSIDE RECORDS SUMMARY | 2025-01-05 11:01 | XMS_ITS | Clinical Summary ---
Author Organization [facility] Address [address] [place] [address] Care Team Providers Care Brand Analyst Name Role Phone Gi Rodríguez MD Primary Care Provider + Allergies No known active allergies Medications No known medications Social History Tobacco Use Types Packs/Day Years Used Date Smoking Tobacco: Never Assessed Personal Safety Answer Date Recorded Have you ever been in or are you currently in a harmful physical or emotional relationship or is someone making you feel afraid or unsafe? Denies 11/02/2023 Comments Unknown Sex and Gender Information Value Date Recorded Sex Assigned at Not on file Legal Sex Female 6:55 PM CDT Gender Identity Not on file Sexual Orientation Not on file Obstetrics History Last Filed Vital Signs Vital Sign Reading Time Taken Comments Blood Pressure 133/90 11/02/2023 6:58 PM CDT Pulse 91 11/02/2023 6:58 PM CDT Temperature 36.6 C (97.9 F) 11/02/2023 6:58 PM CDT Respiratory Rate 18 11/02/2023 6:58 PM CDT Oxygen Saturation 99% 11/02/2023 6:58 PM CDT Inhaled Oxygen Concentration - - Weight 99.3 kg (219 lb) 11/02/2023 6:58 PM CDT Height 162.6 cm (5' 4) 11/02/2023 6:58 PM CDT Body Mass Index 37.59 11/02/2023 6:58 PM CDT Plan of Treatment Health Maintenance Due Date Last Done Comments Cervical Cancer Screening 1991 Depression Screening 1991 Hepatitis C Screening 1991 Varicella Vaccines (1 of 2 - 13+ 2-dose series) 08/13/2004 Hepatitis B Screening 08/13/2009 Regular Well Visit/Exam 18-64 08/13/2009 HPV Vaccines (1 - 3-dose SCDM series) 08/13/2018 Influenza Vaccine (#1) 2025 , 04/19/2022, 06/03/2021, Additional history exists DTaP/Tdap/Td Vaccine (3 - Td or Tdap) 04/21/2029 04/21/2019, 01/03/2017 Pneumococcal vaccine <65 Aged Out No longer eligible based on patient's age to complete this topic Insurance [facility] [employer] Care Teams Brand Analyst Relationship Specialty Start Date End Date Gi Rodríguez MD PCP - General Family Medicine 11/02/23
--- OUTSIDE RECORDS SUMMARY | 2025-01-05 11:01 | XMS_ITS | Referral Summary ---
Author Organization [facility] Address [address] [place] [address] Care Team Providers Care Sewer Builder Name Role Phone Gi Rodríguez MD Primary [...] on file Sexual Orientation Not on file Last Filed Vital Signs Vital Sign Reading [...] 11/02/2023 6:58 PM CDT Plan of Treatment Not on file Insurance [facility] [employer] [place] [id number] [facility] [employer] [employer] [place] [id number] Care Teams Sewer Builder Relationship Specialty Start Date End Date Gi Rodríguez MD PCP - General Family Medicine 11/02/23
--- OUTSIDE RECORDS SUMMARY | 2025-01-05 11:01 | XMS_ITS | Clinical Summary ---
Author Organization [facility] Address [address] [place] [address] Care Team Providers Care Museum Host/Hostess Name Role Phone Gi Rodríguez MD Primary Care Provider [phone] Source Comments [facility],non-owned Affiliates and Associated Physician Practices is amultiple site organization consisting of ambulatory clinics and hospital sitesin [place], [place], [place] and [place]. This disclosure is being madepursuant to the Care Everywhere program and may not contain all information available regarding this patient. Last updated 18.[facility] [employer] Allergies Active Allergy Reactions Criticality Noted Date Comments Amoxicillin Urticaria Medium 01/11/2024 Penicillins Urticaria Medium 01/11/2024 Medications * Be aware that medications may not be up to date on this document. Alwaysverify current medications with the patient. ALPRAZolam (Xanax) 0.5 MG tablet Take 1 (one) tablet by mouth at bedtime Activ e traZODone (Desyrel) 50 MG tablet Take 1 (one) tablet by mouth once daily Activ e lithium CR (Lithobid) 300 MG tablet Take 1 (one) tablet by mouth at bedtime Activ e esomeprazole (NexIUM OTC) 20 MG capsuleIndicat ions:Gastroeso phageal Reflux Disease,Heartb urn Take 1 (one) capsule by mouth 2 times daily, before breakfast and supper Reasons: Gastroesophageal Reflux Disease, Heartburn 30 capsule 3 01/11/20 24 Active fluticasone propionate (Flonase) 50 MCG/ACT nasal spray [place] 2 (two) sprays into each nostril once daily 48 g 4 01/11/20 24 Active azelastine (Astelin) 0.1 % nasal spray [place] 1 (one) spray into each nostril 2 times daily 90 mL 4 01/11/20 24 Active cetirizine (ZyrTEC) 10 MG tablet Take 1 (one) tablet by mouth once daily 90 tablet 4 01/11/20 24 Active PARoxetine (Paxil) 20 MG tablet Take 1 (one) tablet by mouth every morning Active Active Problems Problem Noted Date Diagnosed Date Lingual tonsil hypertrophy 01/11/2024 Thyroid nodule 12/24/2023 Resolved Problems Problem Noted Date Diagnosed Date Resolved Date Cough 12/24/2023 01/21/2024 Immunizations Immunization Administration Dates Next Due INFLUENZA VACCINE, CELL CULT URE, QUADR. (FLUCELVAX QUADRIVALENT; 6MO+) (CCIIV4) 04/19/2022,06/03/2021 INFLUENZA VACCINE, QUADR. (F LUZONE; FLULAVAL; FLUARIX; AFLURIA QUADRIVALENT; 6MO+), 0.5 ML (IIV4) 06/08/2023 TDAP, HISTORIC VACCINE 04/21/2019,01/03/2017 iNFLUENZA VACCINE, RECOM-CHANG, QUADR. (FLUBLOCK QUADRIVALENT; 18Y+) (RIV4) 05/07/2020 Social History Tobacco Use Types Packs/Day Years Used Date Smoking Tobacco: Never Smokeless Tobacco: Never Tobacco Cessation:Counseling Given: Not Answered Alcohol Use Standard Drinks/Week Comments Never 0 (1 standard drink = 0.6 oz pur e alcohol) Comments Unknown Sex and Gender Information Value Date Recorded Sex Assigned at Not on file Legal Sex Female 3:56 PM CODING COMPLIANCE AUDITOR Gender Identity Not on file Sexual Orientation Not on file Last Filed Vital Signs Vital Sign Reading Time Taken Comments Blood Pressure 125/80 02/22/2024 1:03 PM CDT Pulse 81 02/22/2024 1:03 PM CDT Temperature 36.4 C (97.5 F) 12/24/2023 10:04 AM CDT Respiratory Rate 16 12/24/2023 10:0 4 AM CDT Oxygen Saturation 98% 12/24/2023 10: 04 AM CDT Inhaled Oxygen Concentration - - Weight 104.5 kg (230 lb 6.4 oz) 02/22/2024 1:03 PM CDT Height 162.6 cm (5' 4) 02/22/2024 1:03 PM CDT Body Mass Index 39.55 02/22/2024 1:03 PM CDT Plan of Treatment Health Maintenance Due Date Last Done Comments HIV SCREENING 08/13/2006 HEPATITIS C SCREENING 08/09/2009 HEPATITIS B VACCINE (1 of 3 - 19+ 3-dose series) 08/13/2010 PAP SMEAR 08/13/2012 HPV VACCINE (1 - 3-dose SCDM series) 08/13/2018 COVID-19 VACCINE ( season) 2024 06/08/2023, 04/19/2022, 06/03/2021, Additional history exists DEPRESSION SCREENING 06/07/2024 INFLUENZA VACCINE (#1) 2025 , 04/19/2022, 06/03/2021, Additional history exists DTAP/TDAP/TD VACCINES (3 - Td or Tdap) 04/21/2029 04/21/2019, 01/03/2017 ZOSTER VACCINE (1 of 2) 08/13/2041 HIB VACCINE Aged Out No longer eligi ble based on patient's age to complete this topic MENINGOCOCCAL (Group B) VACCINE SHARED DECISION-MAKING Aged Out No longer eligible based on patient's age to complete this topic MENINGOCOCCAL GROUPS A/C/Y/W VACCINE Aged Out No longer eligible based on patient's age to complete this topic PNEUMOCOCCAL VACCINE Aged Out No long er eligible based on patient's age to complete this topic Insurance Care Teams Museum Host/Hostess Relationship Specialty Start Date End Date Gi Rodríguez MD [address] [place] [id number] PCP - General Family Medicine 11/11/23
--- OUTSIDE RECORDS SUMMARY | 2025-01-05 11:01 | XMS_ITS | Patient Health Record ---
Author Organization [facility] [employer] Address [address] [place] [address] Care Team Providers [facility] Adviser Name Role Phone Bucky Rodríguez MD Primary Care Provider Unava Hansel Cho Unavailable [phone] Allergies Allergen (clinical drug ingredient) Drug/Non Drug Allergy documented on EMR Reaction Allergy Type Onset Date Status amoxicillin Amoxicillin Unknown Drug Allergy Act niurka cephalexin Cephalexin Unknown Drug Allergy Activ e Penicillin Unknown Drug Allergy Active Results Component Value Reference Range Notes UDT Reviewed date:09/29/2024 04:31:06 PM Interpretation: Performing Lab: Notes/Report: THC N 0 - 50 ng/ml Cocaine N 0 - 300 ng/ml Amphetamine N 0 - 1000 ng/ml Buprenorphine (BUP) N 0 - 10 ng/ml Secobarbital (Bar) N 0 - 300 ng/ml Oxazepam (BZO) N 0 - 300 ng/ml 6-aujcessaou-8,4-nrucbzbm-5, 3-diphen ylpyrrolidine (EDDP) N 0 - 300 ng/ml Methamphetamine (MET) N 0 - 1000 ng/ml Methylenedioxymethamphetamine (MDMA) N 0 - 500 ng/ml Morphine (MOP 300/[id number]) N 0 - 300 ng/ml Methadone (MTD) N 0 - 300 ng/ml Phencyclidine (PCP) N 0 - 25 ng/ml Nortriptyline (TCA) N 0 - 1000 ng/ml Oxycodone N 0 - 300 ng/ml x N 0 - 300 ng/ml UDT Reviewed date:07/06/2024 04:21:10 PM Interpretation: Performing Lab: Notes/Report: THC N 0 - 50 ng/ml Cocaine N 0 - 300 ng/ml Amphetamine N 0 - 1000 ng/ml Buprenorphine (BUP) N 0 - 10 ng/ml Secobarbital (Bar) N 0 - 300 ng/ml Oxazepam (BZO) N 0 - 300 ng/ml 8-yvhbsevtjt-5,8-odtungrc-3, 3-diphen ylpyrrolidine (EDDP) N 0 - 300 ng/ml Methamphetamine (MET) N 0 - 1000 ng/ml Methylenedioxymethamphetamine (MDMA) N 0 - 500 ng/ml Morphine (MOP 300/FED6733) N 0 - 300 ng/ml Methadone (MTD) N 0 - 300 ng/ml Phencyclidine (PCP) N 0 - 25 ng/ml Nortriptyline (TCA) N 0 - 1000 ng/ml Oxycodone N 0 - 300 ng/ml x N 0 - 300 ng/ml PRESCRIBED DRUGS, medMATCH(R ) ([id number]) Reviewed date:10/15/2024 06:50:55 AM Interpretation: Performing Lab:[id number] [facility], [id number] Maryann Fatima MD Notes/Report: FASTING: NO medMATCH Summary Prescribed Prescribed Not Prescribed Consistent Inconsistent Inconsistent Alprazolam Prescribed Drug 1 Alprazolam DRUG MONITOR, CHRISTINA BRADSHAW [place] ([id number]) Reviewed date:10/15/2024 06:51:03 AM Interpretation: Performing Lab:[id number] Benedict[facility], Isaiah [id number] Jose Sood, Director - [address] [facility] Notes/Report: FASTING: NO Alphahydroxyalprazolam NEGATIVE <25 ng/mL medMATCH aOH alprazolam INCONSISTENT Alphahydroxymidazolam NEGATIVE <50 ng/mL Alphahydroxytriazolam NEGATIVE <50 ng/mL Aminoclonazepam NEGATIVE <25 ng/mL Hydroxyethylflurazepam NEGATIVE <50 ng/mL Lorazepam NEGATIVE <50 ng/mL Nordiazepam NEGATIVE <50 ng/mL Oxazepam NEGATIVE <50 ng/mL Temazepam NEGATIVE <50 ng/mL Benzodiazepines Comments See LDT Notes Notes and Comments This drug testing is for medical treatment only. Analysis was performed as non-forensic testing and these results should be used only by healthcare providers to render diagnosis or treatment, or to monitor progress of medical conditions. LDT Notes: Confirmation tests were developed and their analytical performance characteristics have been determined by [facility]. It has not been cleared or approved by the FDA. This assay has been validated pursuant to the CLIA regulations and is used for clinical purposes. medNetSpark(R) enables providers to identify if drug use is consistent or inconsistent with a corresponding prescribed medication(s) list. Healthcare Providers needing Interpretation assistance, please contact us at [phone] ( ) M-F, 8am to 10pm EST Reason For Referral No Information Medications Medication SIG (Take, Route, Frequency, Duration) Notes Start Date End Date Status Terrell Carbonate 150 MG 1 capsule at bedtime Orally once a day; Duration: 90 days dose reduced stop lithium er 300 mg 11/02/2024 Active traZODone HCl 50 MG TAKE 2 TABLETS BY MOUTH EVERY DAY AT BEDTIME NEEDED FOR SLEEP Oral; Duration: 30 Days Not-Taking PARoxetine HCl 20 MG 1 tablet every morning Orally Once a day; Duration: 90 days Active ALPRAZolam 0.5 MG TAKE 1 TABLET BY MOUTH TWICE DAILY NEEDED FOR ANXIETY Oral; Duration: 30 Days Active Social History Tobacco Use: Social History Observation Description Date Details (start date - stop date) Never Smoker NA - NA Sex Assigned At : Social History Observation Description Sex Assigned At Female Tobacco Control (Standard) Question Answer Notes Tobacco use: Nonsmoker AUDIT-C (Standard) Question Answer Notes Did you have a drink contain ing alcohol in the past year? Yes How often did you have six o r more drinks on one occasion in the past year? Less than monthly (1 point) How many drinks did you have on a typical day when you were drinking in the past year? 1 or 2 drinks (0 point) How often did you have a dri nk containing alcohol in the past year? Monthly or less (1 point) Points 2 Interpretation Negative Problems Problem Type SNOMED Code ICD Code Onset Dates Problem Status W/U Status Risk Notes Problem Severe recurrent major depression without psychotic features (92403007) Major depressive disorder, recurrent severe without psychotic features (F33.2) Active confirmed Problem Insomnia (987975635) Insomnia, unspecified (G47.00) Active confirmed Problem Generalized anxiety disorder (23423988) KRISTAN (generalized anxiety disorder) (F41.1) Active confirmed Problem Thyroid nodule (090645722) Thyroid nodule (E04.1) 4 Active confirmed Problem Hypertrophy of tonsils (07312223) Lingual tonsil hypertrophy (J35.1) 4 Active confirmed Vital Signs Heart Rate 76 /min 11/30/2024 Height-cm 162.56 cm 11/30/2024 Blood pressure diastolic 81 mm Hg 11/30/2024 Weight-kg 96.62 kg 11/30/2024 Height 64 in 11/30/2024 Blood pressure systolic 121 mm Hg 11/30/2024 Weight 213 lbs 11/30/2024 BMI 36.56 kg/m2 11/30/2024 Encounters Encounter Location Date Provider Diagnosis [facility] [address] [address] 01/28/2024 Hansel Isamar Major depressive disorder, recurrent severe without psychotic features F33.2 ; KRISTAN (generalized anxiety disorder) F41.1 and Suicide ideation R45.851 [facility] [address] [address] 04/13/2024 Hansel Isamar Major depressive disorder, recurrent severe without psychotic features F33.2 and KRISTAN (generalized anxiety disorder) F41.1 [facility] [address] [address] 07/06/2024 Hansel Isamar Major depressive disorder, recurrent severe without psychotic features F33.2 and KRISTAN (generalized anxiety disorder) F41.1 [facility] [address] [facility] [address] [place] [address] 09/29/2024 Hansel Isamar KRISTAN (generalized anx iety disorder) F41.1 ; Encounter for screening for depression Z13.31 ; Encounter for screening for cardiovascular disorders Z13.6 and Major depressive disorder, recurrent severe without psychotic features F33.2 [facility] [place] [id number] [facility] [address] [address] 11/02/2024 Hansel Penn Major depressive disorder, recurrent severe without psychotic features F33.2 ; KRISTAN (generalized anxiety disorder) F41.1 ; Lingual tonsil hypertrophy J35.1 ; Thyroid nodule E04.1 ; Encounter for screening for depression Z13.31 ; Encounter for screening for cardiovascular disorders Z13.6 ; BMI 36.0-36.9,adult Z68.36 and Elevation of levels of liver transaminase levels R74.01 [facility] [address] [facility] [address] [place] [address] 11/30/2024 Hansel Penn Major depressive disorder, recurrent severe without psychotic features F33.2 ; KRISTAN (generalized anxiety disorder) F41.1 ; BMI 36.0-36.9,adult Z68.36 ; Negative depression screening Z13.31 ; Encounter for screening for cardiovascular disorders Z13.6 ; Insomnia, unspecified G47.00 ; Other long filler cigar roller machine (current) drug therapy Z79.899 and Suicidal ideations R45.851 Assessments Encounter Date Diagnosis (ICD Code) Assessment Notes Treatment Notes Treatment Clinical Notes Section Notes 04/13/2024 Major depressive disorder, recurrent severe without psychotic features (ICD-10 - F33.2) Anxiety and Insomnia - Assessment: Patient reports running out of trazodone and Xanax for at least a month but is still feeling pretty good. - Plan: - Continue current medications: Roxetine (20 mg) and lithium (300 mg slow release). - Monitor patient's anxiety and sleep patterns in future visits. Mood Stability - Assessment: No reported changes in mood or thoughts about dying, , or self-harm. - Plan: - Continue lithium therapy and monitor for any mood changes. Thyroid Function - Assessment: Patient had blood work done in February, including thyroid levels, which were reported as normal. Blood work was done due to flu and prednisone treatment, which affected body temperature. - Plan: - Contact Dr. Rodríguez's office to obtain the blood work results for review. - Monitor thyroid function in future visits, especially considering the patient's lithium therapy. General Health - Assessment: No reported increased thirst or urination. Patient reports taking medications as prescribed. - Plan: Encourage the patient to maintain a healthy lifestyle and continue taking medications as prescribed. Follow-up - Plan: - Schedule a follow-up appointment in three months to assess the patient's progress and adjust treatment plans as necessary. - If any concerns arise before the next appointment, the patient should contact the clinic for further evaluation. Prescriptions - Plan: Prescriptions to be sent to [facility]. 04/13/2024 KRISTAN (generalized anxiety disorder) (ICD-10 - F41.1) Anxiety and Insomnia - Assessment: Patient reports running out of trazodone and Xanax for at least a month but is still feeling pretty good. - Plan: - Continue current medications: Roxetine (20 mg) and lithium (300 mg slow release). - Monitor patient's anxiety and sleep patterns in future visits. Mood Stability - Assessment: No reported changes in mood or thoughts about dying, , or self-harm. - Plan: - Continue lithium therapy and monitor for any mood changes. Thyroid Function - Assessment: Patient had blood work done in February, including thyroid levels, which were reported as normal. Blood work was done due to flu and prednisone treatment, which affected body temperature. - Plan: - Contact Dr. Rodríguez's office to obtain the blood work results for review. - Monitor thyroid function in future visits, especially considering the patient's lithium therapy. General Health - Assessment: No reported increased thirst or urination. Patient reports taking medications as prescribed. - Plan: Encourage the patient to maintain a healthy lifestyle and continue taking medications as prescribed. Follow-up - Plan: - Schedule a follow-up appointment in three months to assess the patient's progress and adjust treatment plans as necessary. - If any concerns arise before the next appointment, the patient should contact the clinic for further evaluation. Prescriptions - Plan: Prescriptions to be sent to [facility]. 07/06/2024 Major depressive disorder, recurrent severe without psychotic features (ICD-10 - F33.2) 01/28/2024 Major depressive disorder, recurrent severe without psychotic features (ICD-10 - F33.2) Patient had reduction in suicidal ideation and/or behavior upon follow-up assessment within 120 days of index assessment (M1357) Mood and Depression - Assessment: The patient reports an improvement in overall mood and no current suicidal ideation. They are currently on 300 mg lithium and trazodone at night. The patient is also undergoing EMDR therapy, which has been helpful but intense. - Plan: - Continue lithium at 300 mg and trazodone as prescribed. - Continue EMDR therapy and monitor progress. - Reassess medication dosage in future visits if needed. 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 - Plan: - Continue alprazolam as needed for anxiety. - Encourage the patient to maintain a healthy work-life balance and prioritize self-care. Weight Management - Assessment: The patient reports overeating despite regular exercise, including weight lifting and 45 minutes of cardio daily (bike riding). - Plan: - Encourage the patient to maintain a healthy diet and continue their exercise routine. - Monitor weight changes and discuss potential interventions if needed in future visits. Fatigue - Assessment: The patient experiences fatigue, which may be related to their busy schedule, therapy sessions, and medication. They report feeling tired earlier than expected for an adult. - Plan: - Monitor fatigue levels and discuss potential interventions if needed in future visits. - Encourage the patient to prioritize rest and self-care, especially after intense EMDR sessions. Follow-up - Plan: - Schedule a follow-up appointment in two months. - Provide a 90-day prescription for the patient's medications. - Encourage the patient to reach out if they need to schedule an earlier appointment or use the walk-in clinic if needed. 09/29/2024 KRISTAN (generalized anxiety disorder) (ICD-10 - F41.1) 11/02/2024 Major depressive disorder, recurrent severe without psychotic features (ICD-10 - F33.2) Patient experiences intermittent episodes of low mood. Episodes resolve by the next day. Adheres to medication regimen and healthy lifestyle. - Lower lithium to 150 mg and monitor mood and weight. - If suicidal thoughts worsen, increase lithium to 300 mg and contact me for a new prescription. - Continue Paxil at 20 mg. 11/02/2024 KRISTAN (generalized anxiety disorder) (ICD-10 - F41.1) 11/30/2024 Major depressive disorder, recurrent severe without psychotic features (ICD-10 - F33.2) 11/30/2024 KRISTAN (generalized anxiety disorder) (ICD-10 - F41.1) 11/02/2024 Lingual tonsil hypertrophy (ICD-10 - J35.1) 09/29/2024 Encounter for screening for depression (ICD-10 - Z13.31) 11/30/2024 BMI 36.0-36.9,adult (ICD-10 - Z68.36) 01/28/2024 KRISTAN (generalized anxiety disorder) (ICD-10 - F41.1) Patient had reduction in suicidal ideation and/or behavior upon follow-up assessment within 120 days of index assessment (M1357) Mood and Depression - Assessment: The patient reports an improvement in overall mood and no current suicidal ideation. They are currently on 300 mg lithium and trazodone at night. The patient is also undergoing EMDR therapy, which has been helpful but intense. - Plan: - Continue lithium at 300 mg and trazodone as prescribed. - Continue EMDR therapy and monitor progress. - Reassess medication dosage in future visits if needed. 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 - Plan: - Continue alprazolam as needed for anxiety. - Encourage the patient to maintain a healthy work-life balance and prioritize self-care. Weight Management - Assessment: The patient reports overeating despite regular exercise, including weight lifting and 45 minutes of cardio daily (bike riding). - Plan: - Encourage the patient to maintain a healthy diet and continue their exercise routine. - Monitor weight changes and discuss potential interventions if needed in future visits. Fatigue - Assessment: The patient experiences fatigue, which may be related to their busy schedule, therapy sessions, and medication. They report feeling tired earlier than expected for an adult. - Plan: - Monitor fatigue levels and discuss potential interventions if needed in future visits. - Encourage the patient to prioritize rest and self-care, especially after intense EMDR sessions. Follow-up - Plan: - Schedule a follow-up appointment in two months. - Provide a 90-day prescription for the patient's medications. - Encourage the patient to reach out if they need to schedule an earlier appointment or use the walk-in clinic if needed. 07/06/2024 KRISTAN (generalized anxiety disorder) (ICD-10 - F41.1) 09/29/2024 Major depressive disorder, recurrent severe without psychotic features (ICD-10 - F33.2) 09/29/2024 Encounter for screening for cardiovascular disorders (ICD-10 - Z13.6) 01/28/2024 Suicide ideation (ICD-10 - R45.851) Patient had reduction in suicidal ideation and/or behavior upon follow-up assessment within 120 days of index assessment (M1357) Mood and Depression - Assessment: The patient reports an improvement in overall mood and no current suicidal ideation. They are currently on 300 mg lithium and trazodone at night. The patient is also undergoing EMDR therapy, which has been helpful but intense. - Plan: - Continue lithium at 300 mg and trazodone as prescribed. - Continue EMDR therapy and monitor progress. - Reassess medication dosage in future visits if needed. 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 - Plan: - Continue alprazolam as needed for anxiety. - Encourage the patient to maintain a healthy work-life balance and prioritize self-care. Weight Management - Assessment: The patient reports overeating despite regular exercise, including weight lifting and 45 minutes of cardio daily (bike riding). - Plan: - Encourage the patient to maintain a healthy diet and continue their exercise routine. - Monitor weight changes and discuss potential interventions if needed in future visits. Fatigue - Assessment: The patient experiences fatigue, which may be related to their busy schedule, therapy sessions, and medication. They report feeling tired earlier than expected for an adult. - Plan: - Monitor fatigue levels and discuss potential interventions if needed in future visits. - Encourage the patient to prioritize rest and self-care, especially after intense EMDR sessions. Follow-up - Plan: - Schedule a follow-up appointment in two months. - Provide a 90-day prescription for the patient's medications. - Encourage the patient to reach out if they need to schedule an earlier appointment or use the walk-in clinic if needed. 11/02/2024 Thyroid nodule (ICD-10 - E04.1) 11/30/2024 Negative depression screening (ICD-10 - Z13.31) 11/30/2024 Encounter for screening for cardiovascular disorders (ICD-10 - Z13.6) 11/02/2024 Encounter for screening for depression (ICD-10 - Z13.31) 11/02/2024 Encounter for screening for cardiovascular disorders (ICD-10 - Z13.6) 11/30/2024 Insomnia, unspecified (ICD-10 - G47.00) Patient experiencing sleep disturbances due to Trazodone refill issues. Taking one tablet instead of prescribed two to avoid excessive sleepiness. - supervisor winter Trazodone prescription from [employer]. - Continue taking one tablet of 50 mg Trazodone. 11/02/2024 BMI 36.0-36.9,adult (ICD-10 - Z68.36) Electronic Prior Authorization was requested for Zepbound 2.5 MG/0.5ML Solution Auto-injector. Provider can order medication once approval received. 11/30/2024 Other long filler cigar roller machine (current) drug therapy (ICD-10 - Z79.899) Patient considering stopping lithium to assess mood. No recent suicidal thoughts reported. - Stop lithium and monitor mood. - Restart lithium if mood worsens. - Contact provider for new prescription if needed. 11/30/2024 Suicidal ideations (ICD-10 - R45.851) Patient has not experienced any suicidal thoughts recently. - Monitor for any suicidal thoughts. - Contact provider if suicidal thoughts occur. 11/02/2024 Elevation of levels of liver transaminase levels (ICD-10 - R74.01) Patient has a history of elevated liver enzymes. Condition has been monitored since the of her first child nine years ago. - Continue monitoring liver enzyme levels. 07/06/2024 Other Anxiety - Assessment: Patient reported increased anxiety during the holidays, leading to panic attacks. Prescribed Xanax and trazodone by Dr. Angelo for anxiety and sleep. Currently stable and not using Xanax frequently. Patient uses trazodone for sleep to prevent spiraling thoughts. - Plan: - Continue current medications (Xanax and trazodone) as needed for anxiety and sleep. - Encourage patient to follow up if anxiety worsens or new symptoms arise. Stress-induced Ulcer - Assessment: Patient experienced a stress-induced ulcer during the holidays. Has a history of multiple ulcers in the past (3rd or 4th occurrence). Received medication from Dr. Angelo and reported improvement after a couple of days. - Plan: - Monitor for any recurrence of ulcer symptoms. - Encourage stress management techniques to prevent future ulcers. Depression and Mood Stability - Assessment: Patient reports taking prescribed medications (paroxetine and lithium) regularly without skipping doses. Mood and depression scores are stable. Patient emphasizes desire to continue current medication regimen. - Plan: - Continue paroxetine 20 mg daily and lithium 300 mg at night. - Refill prescriptions for 90 days. - Schedule 3-month follow-up appointments to monitor mood stability. Thyroid Nodules and Function - Assessment: Patient has a history of enlarged thyroid nodules and slightly elevated alkaline phosphatase. TSH level within normal range (1.39) as of October 2023. Patient has had ultrasounds and one biopsy in the past, expressing discomfort with thyroid biopsies. - Plan: - Monitor thyroid function with annual labs, including TSH and alkaline phosphatase. - Consider repeating thyroid ultrasound if there are changes in symptoms or lab results. - Follow up on any abnormal findings and refer to ladle puller if necessary. Gallbladder Concerns - Assessment: Patient has a family history of gallbladder issues, with female relatives typically requiring removal by age 35. Patient has had gallbladder checked multiple times in the past. Patient expresses concern about potential sudden gallbladder issues. - Plan: - Monitor for any signs or symptoms of gallbladder dysfunction (e.g., abdominal pain, nausea, vomiting). - Consider imaging studies (e.g., ultrasound) if symptoms arise or as part of routine screening. - Refer to a correctional officer captain or surgeon if gallbladder issues are suspected or confirmed. 09/29/2024 Other [facility], female patient with history of mood disorder, presents with recent 3-day episode of low mood and difficulty functioning, now improved. Mood Disorder Exacerbation Assessment: Patient experienced a 3-day episode of low mood and difficulty functioning starting on Wednesday, with symptoms including anhedonia, avolition, and passive suicidal ideation without intent or plan. Symptoms gradually improved over the following days. No clear precipitating factors identified, though patient noted onset of menstrual period. No changes in work or home life; patient recently achieved tenure. Current medication regimen includes Paxil 20 mg and lithium 300 mg, taken consistently at night. Patient maintains regular exercise routine. This appears to be a brief exacerbation of her underlying mood disorder, as she reports 3 months of stability prior to this episode. Plan: - Continue current medication regimen: - Paxil 20 mg PO qhs - Terrell 300 mg PO qhs - Monitor for recurrence or worsening of mood symptoms - Maintain current exercise routine - Follow up in 1 month - Instruct patient to contact office if symptoms worsen or if brief episodes occur more frequently than once per week Disclaimer: This note has been transcribed using speech recognition software and serves as a reflection of the patient's visit. While efforts have been made to ensure accuracy, there may be errors, including electromagnet crane operator inaccuracies and misspellings of medication names. This document should not be considered a verbatim record, and any discrepancies should be verified with the provider. Plan Of Treatment Next Appt Details Provider Name:Hansel Penn , 01/26/2025 04:45:00 PM, [address], [address], [place], [address], Insurance Providers Payer Name Payer Address Payer Phone Subscriber Number Group Number Insured Name Patient Relationship to Insured Coverage Start Date Coverage End Date [facility] [address] [place] [phone] [id number] Madison Cummings Self - patient is the insured Medical (General) History Medical History History ICD Code Anxiety Depression Obesity Past Psychiatric History: Anxiety Disord er,PTSD undefined abdominal aortic aneurysm: No atrial fibrillation: No chronic fatigue syndrome: No essential tremor: No hyperlipidemia: No hypertension: No Parkinson's disease: No restless leg syndrome: No stroke: No subdural hematoma: No type 1 diabetes mellitus: No type 2 diabetes mellitus: No vitamin B12 deficiency: No vitamin D deficiency: No Hospitalization History Reason Date(Month/Year) [employer], for depressio n, anxiety and suicidal ideation, she went to [facility] ER 11/2023
[2025-01-05 11:41] LABS: Alanine Aminotransferase 17 U/L (6-35); Albumin Level 4.6 g/dL (3.5-5.1); Alkaline Phosphatase 104 U/L (38-126); Amylase 62 U/L (30-110); Aspartate Amino Transferase 28 U/L (14-36); Bilirubin,Total 0.6 mg/dL (0.2-1.3); Lipase 47 U/L (23-300); Total Protein 8.4 g/dL (6.3-8.2)
== END 2025-01-05 10:58 | disposition home or self-care (01) ==
LOC: ANHLAB 10:59
PROVIDERS: PCP Nurse Practitioner Family; Visit Provider Surgery
DX: Z01.818 Encounter for other preprocedural examination (principal); K80.20 Calculus of gallbladder without cholecystitis without obstruction
CPT/HCPCS: 36415; 80076; 82150; 83690; 86850; 86900; 86901

== ENCOUNTER 2025-01-09 00:43 | Day surgery (SDC) | payer OTHER, SELFPAY ==
--- NOTE | 2025-01-01 17:07 | PC.NURSE ---
Report to the Outpatient Waiting Room, entrance under the green pavilion located off [facility], at time 1100 on date 01/09/25. Planned Procedure Time: 1300.? Time changes happen often and if your time is changed the preop area will call you the afternoon before. - You and your visitor will be asked to self-screen and do not enter if you have any COVID symptoms. Please call surgeon if you need to reschedule. - A mask is optional within the hospital at this time. Patients may have clear liquids (water, carbonated beverages, clear teas, apple juice) until 3 hours prior to surgery with a maximum of 20 ounces. 1000 - No food from midnight until time of surgery and no smoking, or chewing tobacco (or any form of nicotine). No chewing gum, candy or mints. - Infants may have breast milk until 4 hours before surgery, infant formula 6 hours prior to surgery. - Children will be allowed to drink immediately following surgery.? If applicable, please bring a bottle or sippy cup to assist with drinking. Juice, water, soda, and popsicles are readily available.? For infants on formula, please bring formula the day of surgery.? Pacifiers are allowed. Take only the following medications with a SIP of water on the morning of surgery: xanax, paroxetine DO NOT STOP ANY OF YOUR OTHER PRESCRIPTION MEDICATIONS PRIOR TO SURGERY EXCEPT THE FOLLOWING Hold all vitamins and supplements for 3 days per anesthesiologist. Medications to discontinue per physician edward Date to take last dose 01/06/25 Please no make-up, nail yoruba, hairspray, perfume, deodorant, or body powder the day of surgery.? No jewelry (including any body piercings) or valuables the day of surgery, leave them at home.? Please take a shower or bath the night before, or the morning of, surgery with an antibacterial soap.? Wear comfortable, loose fitting clothing.? Children are encouraged to wear pajamas. - Jewelry must be removed prior to entering the operating room.? Rings and piercings that are not removed may be cut off. - The hospital will not accept responsibility for valuables.? - Please leave all valuables, including medications, at home the day of surgery. If you are going home after surgery, a licensed shuttle bus driver must drive you home.? - NO public transportation without another adult if you receive anesthesia. - We recommend that an adult stay with you for 24 hours following discharge. - We also recommend that you do not drive, make important decision, drink alcoholic beverages, or take any drugs that were not prescribed by your health care provider for at least 24 hours after your discharge time. For Pediatric surgeries, we recommend two adults accompany the child home. Follow any additional instructions given to you from your surgeon. Telephone instructions given to Patient- Madison Cummings and asked if any additional questions and then verbalized understanding. Patient advised to call surgeon office or pre surgery nurse liaison [phone] if any additional questions.
[2025-01-01 17:15] VITALS: BMI 37.6
[2025-01-09] VITALS (8 sets, daily range): BP systolic 105–130; BP diastolic 58–79; PULSE 62–92; RESP 14–20; TEMP 36.4; O2SAT 95–100
--- OUTSIDE RECORDS SUMMARY | 2025-01-09 00:45 | XMS_ITS | Referral Summary ---
Author Organization [facility] Address [address] [place] [address] Care Team Providers Care Rug Setter Velvet Name Role Phone Gi Rodríguez MD Primary [...] Plan of Treatment Not on file Insurance [facility] CHOICE PLUS [place] [id number] [facility] CHOICE PLUS [place] [id number] Care Teams Rug Setter Velvet Relationship Specialty Start Date End Date Gi Rodríguez MD PCP - General Family Medicine 11/02/23
--- OUTSIDE RECORDS SUMMARY | 2025-01-09 00:45 | XMS_ITS | Patient Health Record ---
Author Organization [facility] Address [address] [place] [address] Care Team Providers Care Mobile Application Architect Name Role Phone Bucky Rodríguez MD Primary Care Provider Unava Hansel Cho Unavailable [phone] Allergies Allergen (clinical drug ingredient) Drug/Non Drug [...] Oxazepam (BZO) N 0 - 300 ng/ml 1-uxrsttncdr-5,3-dxamlloc-4, 3-diphen ylpyrrolidine (EDDP) N 0 - 300 ng/ml Methamphetamine (MET) N 0 - 1000 ng/ml Methylenedioxymethamphetamine (MDMA) N 0 - 500 ng/ml Morphine (MOP 300/WRX1785) N 0 - 300 ng/ml Methadone (MTD) N 0 - 300 ng/ml Phencyclidine (PCP) N 0 - 25 ng/ml Nortriptyline (TCA) N 0 - 1000 ng/ml Oxycodone N 0 - 300 ng/ml x N 0 - 300 ng/ml DRUG MONITOR, BENZO, QN, URI NE ([id number]) Reviewed date:10/15/2024 06:51:03 AM Interpretation: Performing Lab:[facility] [id number], Isaiah [id number] Jose Sood, Director - [address] [facility] Notes/Report: FASTING: NO Alphahydroxyalprazolam NEGATIVE <25 ng/mL [...] analytical performance characteristics have been determined by [facility]. It has not been cleared or approved by the FDA. This assay has been validated pursuant to the CLIA regulations and is used for clinical purposes. medMATCH(R) enables providers to identify if drug use is consistent or inconsistent with a corresponding prescribed medication(s) list. Healthcare Providers needing Interpretation assistance, please contact us at [phone] ( ) M-F, 8am to 10pm EST PRESCRIBED DRUGS, medMATCH(R ) (08660) Reviewed date:10/15/2024 06:50:55 AM Interpretation: Performing Lab:[id number], [id number] Maryann Fatima MD Notes/Report: FASTING: NO medMATCH Summary Prescribed Prescribed Not Prescribed Consistent Inconsistent Inconsistent Alprazolam Prescribed Drug 1 Alprazolam UDT Reviewed date:07/06/2024 04:21:10 PM Interpretation: Performing Lab: Notes/Report: THC N 0 - 50 ng/ml Cocaine N 0 - 300 ng/ml Amphetamine N 0 - 1000 ng/ml Buprenorphine (BUP) N 0 - 10 ng/ml Secobarbital (Bar) N 0 - 300 ng/ml Oxazepam (BZO) N 0 - 300 ng/ml 2-rfjmtcbxhw-2,8-ltsrchoj-8, 3-diphen ylpyrrolidine (EDDP) N 0 - 300 ng/ml Methamphetamine (MET) N 0 - 1000 ng/ml Methylenedioxymethamphetamine (MDMA) N 0 - 500 ng/ml Morphine (MOP 300/[id number]) N 0 - 300 ng/ml Methadone (MTD) N 0 - 300 ng/ml Phencyclidine (PCP) N 0 - 25 ng/ml Nortriptyline (TCA) N 0 - 1000 ng/ml Oxycodone N 0 - 300 ng/ml x N 0 - 300 ng/ml Reason For Referral No Information Medications Medication SIG (Take, Route, Frequency, Duration) Notes Start Date End Date Status [place] Carbonate 150 MG 1 capsule at bedtime [...] Severe recurrent major depression without psychotic features (20341809) Major depressive disorder, recurrent severe without psychotic features (F33.2) Active confirmed Problem Insomnia (181301896) Insomnia, unspecified (G47.00) Active confirmed Problem Generalized anxiety disorder (64105409) KRISTAN (generalized anxiety disorder) (F41.1) Active confirmed Problem Thyroid nodule (362167868) Thyroid nodule (E04.1) 4 Active confirmed Problem Hypertrophy of tonsils (90054805) Lingual tonsil hypertrophy (J35.1) 4 Active confirmed Vital Signs Heart Rate 76 /min 11/30/2024 Height-cm 162.56 cm 11/30/2024 Blood pressure diastolic 81 mm Hg 11/30/2024 Weight-kg 96.62 kg 11/30/2024 Height 64 in 11/30/2024 Blood pressure systolic 121 mm Hg 11/30/2024 Weight 213 lbs 11/30/2024 BMI 36.56 kg/m2 11/30/2024 Encounters Encounter Location Date Provider Diagnosis [facility] [address] [address] 01/28/2024 Hansel Isamar Major depressive disorder, recurrent severe without psychotic features F33.2 ; KRISTAN (generalized anxiety disorder) F41.1 and Suicide ideation R45.851 [facility] [address] [address] 04/13/2024 Hansel Isamar Major depressive disorder, recurrent severe without psychotic features F33.2 and KRISTAN (generalized anxiety disorder) F41.1 [facility] [address] [address] 07/06/2024 Hansel Isamar Major depressive disorder, recurrent severe without psychotic features F33.2 and KRISTAN (generalized anxiety disorder) F41.1 [facility] [address] [facility] [address] [place] [address] 09/29/2024 Hansel Isamar KRISTAN (generalized anx iety disorder) F41.1 ; Encounter for screening for depression Z13.31 ; Encounter for screening for cardiovascular disorders Z13.6 and Major depressive disorder, recurrent severe without psychotic features F33.2 [facility] [place] [id number] [facility] [address] [address] 11/02/2024 Hansel Penn Major depressive disorder, recurrent severe without psychotic features F33.2 ; KRISTAN (generalized anxiety disorder) F41.1 ; Lingual tonsil hypertrophy J35.1 ; Thyroid nodule E04.1 ; Encounter for screening for depression Z13.31 ; Encounter for screening for cardiovascular disorders Z13.6 ; BMI 36.0-36.9,adult Z68.36 and Elevation of levels of liver transaminase levels R74.01 [facility] [employer] [facility] [address] [place] [address] 11/30/2024 Hansel Penn Major depressive disorder, recurrent severe without psychotic features F33.2 ; KRISTAN (generalized anxiety disorder) F41.1 ; BMI 36.0-36.9,adult Z68.36 ; Negative depression screening Z13.31 ; Encounter for screening for cardiovascular disorders Z13.6 ; Insomnia, unspecified G47.00 ; Other emt intermediate (current) drug therapy Z79.899 and Suicidal ideations R45.851 Assessments Encounter Date Diagnosis (ICD Code) Assessment Notes Treatment Notes Treatment Clinical Notes Section Notes 11/30/2024 KRISTAN (generalized anxiety disorder) (ICD-10 - F41.1) 09/29/2024 KRISTAN (generalized anxiety disorder) (ICD-10 - F41.1) 04/13/2024 Major depressive disorder, recurrent severe without [...] - Plan: Prescriptions to be sent to [facility]. 04/13/2024 KRISTAN (generalized anxiety disorder) (ICD-10 - [...] - Plan: Prescriptions to be sent to [facility] pharmacy. 01/28/2024 Major depressive disorder, recurrent severe without [...] use the walk-in clinic if needed. 07/06/2024 Major depressive disorder, recurrent severe without psychotic features (ICD-10 - F33.2) 11/02/2024 Major depressive disorder, recurrent severe without [...] severe without psychotic features (ICD-10 - F33.2) 11/02/2024 Lingual tonsil hypertrophy (ICD-10 - J35.1) 07/06/2024 KRISTAN (generalized anxiety disorder) (ICD-10 - F41.1) 01/28/2024 KRISTAN (generalized anxiety disorder) (ICD-10 - [...] or use the walk-in clinic if needed. 11/30/2024 BMI 36.0-36.9,adult (ICD-10 - Z68.36) 09/29/2024 Encounter for screening for depression (ICD-10 - Z13.31) 09/29/2024 Major depressive disorder, recurrent severe without psychotic features (ICD-10 - F33.2) 09/29/2024 Encounter for screening for cardiovascular disorders (ICD-10 - Z13.6) 11/30/2024 Negative depression screening (ICD-10 - Z13.31) 01/28/2024 Suicide ideation (ICD-10 - R45.851) Patient [...] needed. 11/02/2024 Thyroid nodule (ICD-10 - E04.1) 11/02/2024 Encounter for screening for depression (ICD-10 - Z13.31) 11/30/2024 Encounter for screening for cardiovascular disorders (ICD-10 - Z13.6) 11/30/2024 Insomnia, unspecified (ICD-10 - G47.00) Patient experiencing sleep disturbances due to Trazodone refill issues. Taking one tablet instead of prescribed two to avoid excessive sleepiness. 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 - Continue taking one tablet of 50 mg Trazodone. 11/02/2024 Encounter for screening for cardiovascular disorders (ICD-10 - Z13.6) 11/02/2024 BMI 36.0-36.9,adult (ICD-10 - Z68.36) Electronic Prior Authorization was requested for Zepbound 2.5 MG/0.5ML Solution Auto-injector. Provider can order medication once approval received. 11/30/2024 Other emt intermediate (current) drug therapy (ICD-10 - Z79.899) Patient [...] on any abnormal findings and refer to coal weigher if necessary. Gallbladder Concerns - Assessment: Patient [...] of routine screening. - Refer to a antique furniture reproducer or surgeon if gallbladder issues are suspected or confirmed. 09/29/2024 Other [facility], female patient with history of [...] - Paxil 20 mg PO qhs - [place] 300 mg PO qhs - Monitor for [...] ensure accuracy, there may be errors, including environmental services worker inaccuracies and misspellings of medication names. This document should not be considered a verbatim record, and any discrepancies should be verified with the provider. Plan Of Treatment Next Appt Details Provider Name:Hansel Penn , 01/26/2025 04:45:00 PM, [address], [address], [place], [address], Insurance Providers Payer Name Payer Address Payer Phone Subscriber Number Group Number Insured Name Patient Relationship to Insured Coverage Start Date Coverage End Date [facility] [address] [place] [address] [id number] Madison Cummings Self - patient is the [...] anxiety and suicidal ideation, she went to [facility] ER 11/2023
--- OUTSIDE RECORDS SUMMARY | 2025-01-09 00:45 | XMS_ITS | Clinical Summary ---
Author Organization [facility] Address [address] [place] [address] Care Team Providers Care Superintendent Seed Mill Name Role Phone Gi Rodríguez MD Primary [...] patient's age to complete this topic Insurance [facility] H[facility] Address: [place] [address] [facility] CHOICE PLUS [facility] H[facility]/PPO Address: [place] [address] Care Teams Superintendent Seed Mill Relationship Specialty Start Date End Date Gi Rodríguez MD PCP - General Family Medicine 11/02/23
--- OUTSIDE RECORDS SUMMARY | 2025-01-09 00:45 | XMS_ITS | Clinical Summary ---
Author Organization [facility] Address [address] [place] [address] Care Team Providers Care Social Sciences Chair Name Role Phone Gi Rodríguez MD Primary Care Provider [phone] Source Comments [facility],non-owned Affiliates and Associated Physician Practices is amultiple site organization consisting of ambulatory clinics and hospital sitesin [place], [place], [place] and [place]. This disclosure is being madepursuant to the Care Everywhere program and may not contain all information available regarding this patient. 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
[2025-01-09] MEDS: ACETAMINOPHEN 500 MG TABLET 1000 MG PO (11:30)
[2025-01-09] MEDS: KETOROLAC 15 MG/ML VIAL (*BKC) IV PUSH (11:35)
[2025-01-09] MEDS: LACTATED RINGERS 1,000 ML 30 ML IV CONT ×2 (11:35→15:34)
[2025-01-09] MEDS: INDOCYANINE GREEN 25 MG VIAL WITH DILUENT 3.75 MG IV PUSH (11:40)
[2025-01-09 11:44] LABS: BEDSIDEPREGUCG Negative (Negative)
--- NOTE | 2025-01-09 13:09 | WPDHPUPDATE1 ---
History and Physical Update Update Date/Time: 01/09/25 13:09 History and Physical has been reviewed, including an updated exam of the patient. There are NO changes in the patient's condition. Risks, benefits, and alternatives have been discussed and questions answered. Patient agrees to proceed with procedure.
--- NOTE | 2025-01-09 13:28 | P.PNAN_ITS ---
Anes - Initial Pre Proc Eval Procedure: Operation Date: 01/09/25 13:00 Proposed Procedures p Robotic Cholecystectomy, Possible Open - Chandler Rodriguez MD Date/Time: 01/09/25 13:28 Surgeon: Chandler Rodriguez MD Pre Op Diagnosis: symptomatic cholelithiasis Patient Data Age: 34 Gender: F Height: 1.63 m Weight: 100.4 kg Last Vital Signs Temp 97.6 F 01/09/25 11:18 Pulse 62 01/09/25 11:18 Resp 16 01/09/25 11:18 BP 106/71 01/09/25 11:18 Pulse Ox 100 01/09/25 11:18 O2 Del Method Room Air 01/09/25 11:18 Allergies Allergy/AdvReac Type Severity Reaction Status Date / Time amoxicillin Allergy Unknown Hives Verified 01/09/25 11:41 cephalexin Allergy Unknown Skin Verified 01/09/25 11:41 Reaction Penicillins Allergy Unknown Skin Verified 01/09/25 11:41 Reaction Home Medications ?Medication ?Instructions ?Recorded ?Confirmed ?Type paroxetine HCl 10 mg tablet 10 mg PO DAILY #90 tabs 11/09/23 01/01/25 Rx alprazolam 0.5 mg tablet 0.5 mg PO BID PRN anxiety #60 tabs 05/23/24 01/01/25 Rx trazodone 50 mg tablet 100 mg (2 x 50 mg) PO QHS PRN 05/23/24 01/01/25 Rx sleep #180 tabs ashwagandha extract 120 mg capsule 120 mg PO DAILY 01/01/25 01/01/25 History Laboratory Tests 01/09/25 11:42 POC Urine HCG, Qual Negative (Negative) Patient hx anesthesia problems: none Family hx anesthesia problems: none Results Review: All pre-operative results and documents have been reviewed as part of the pre- operative evaluation. PENDING SALE TO [facility] Past Medical History Medical History labor with term delivery Active labor at term and not yet delivered contractions Hoarse voice quality RUQ abdominal pain Anxiety and depression Psoriasis Obesity Gestational diabetes Family History Family History Grandparent Uterine cancer Father Hypertension High cholesterol Mother FH: cholecystectomy Social History Social History Smoking packs per day: 0.5 Smoking cigarettes per day: 10.0 Years smoked: 13 Smoking pack-years: 6.50 Smoking status: Current every day smoker Tobacco type: cigarettes Alcohol intake: current Alcohol use details: has not had any alcohol for a week Substance use: current Substance use type: marijuana Other substance usage details: couple times a lauren Do You Feel Safe in your Home?: Yes Lack of Transportation: No Lack of Food: Never True Current Housing: I Have Housing Concerned About Future Housing: No Difficulty Paying Gas/Electric Bills: No Difficulty Paying for Meds: No Currently Unemployed: No Education: Bachelor's Degree Difficulty w/ Childcare or Family Care: No Spiritual care concerns: No Anes - Eval Final PreProcedure Day of Procedure 01/09/25 13:28 Patient weight: obese Heart: regular rate and rhythm Lungs: clear to auscultation Airway: Mallampati scale class II Neurological: alert and oriented Last oral intake: >/= 8 hours ASA classification: II Emergent: no Anesthetic plan: proceed Anesthesia type and monitoring: general ETT and standard monitoring Results Review: All pre-operative results and documents have been reviewed as part of the pre- operative evaluation. Informed Consent: The patient's anesthetic plan and its attendant risks and benefits were discussed with the patient/family/POA. Questions were solicited and answers provided to the satisfaction of the patient/family/POA.
[2025-01-09] MEDS: CLINDAMYCIN 900 MG/D5W 50 ML 900 MG/50 ML PIGGYBACK 50 MG IVPB (13:48)
[2025-01-09] MEDS: LIDO 1%/EPINEPHRINE 1:100,000 20 ML VIAL 30 ML INFILTRATE (14:27)
[2025-01-09] MEDS: BUPivacaine HCL 0.5% 10 ML AMP 30 ML INFILTRATE (14:34)
--- NOTE | 2025-01-09 15:00 | S_PTH ---
PATIENT: Madison Cummings LOC: [facility] U#:[id number] AGE/SX: 34/F ROOM: RE01/09/[address]: Chandler Rodriguez MD : 1990 BED: DIS: 01/09/2025 SPEC #: [id number] RECD: 01/10/25 09:05 STATUS: ASHLEY REQ #: [id number] JULIANA: 01/09/25 15:[address]: Chandler Rodriguez DEPT: [facility] Surgical RECD BY: Amaya Mitchell ENTERED: 01/10/25 09:05 SP TYPE: Surgical OTHR DR: Harper Garcia APRN Tissues: A - Gallbladder Procedures: Hematoxylin and Eosin Stain Gross and Microscopic Level 3
--- NOTE | 2025-01-09 15:30 | W.PM.PROC2 ---
Procedure Note - Detailed Date of Procedure 01/09/25 Pre-op Diagnosis Symptomatic cholelithiasis Post-op Diagnosis Same Procedure Performed Robotic assisted laparoscopic cholecystectomy. Surgeon Chandler Rodriguez MD Humanities And Languages Professor Dominik Doll COMPUTATIONAL THEORY SCIENTIST Anesthesia General Indications Patient is a 34-year-old female who over the past 2 years been having intermittent right upper quadrant abdominal pain which occasionally radiate to her right upper back region. She could really associated the pain occurring with eating certain foods. Abdominal exam reveals some tenderness right upper quadrant and abdominal ultrasound showed multiple gallstones within the gallbladder. She presents now for elective laparoscopic cholecystectomy for symptomatic cholelithiasis. Findings Patient had a fairly normal-appearing gallbladder which was dilated. Multiple gallstones were palpated within the gallbladder once it was removed. There is no evidence of gallbladder wall thickening to suggest acute cholecystitis or chronic cholecystitis. No adhesions of the omentum, duodenum, or bowel was seen to the gallbladder wall. Description of Procedure After informed consent was obtained patient brought to the operating room she was placed supine position and general endotracheal anesthesia was administered. The abdomen is then prepped and draped usual sterile fashion. A time-out was then performed correctly identifying the patient as well as the procedure to be performed. She was given perioperative IV antibiotics. I 1st entered the abdomen left upper quadrant utilizing a 5mm Optiview port. Once inside the abdomen insufflated to adequate pneumoperitoneum of 15mmHg of CO2. I then placed 4 more his 8mm robotic trocars across the mid abdomen under direct visualization. The 5mm left upper quadrant trocar port was switched out to a 10mm trocar port. The de Marcelino robot was then brought to the patient's bedside and the robotic arms were attached the robotic ports. Robotic instruments were then advanced into the abdomen under direct visualization. I then scrubbed out the procedure started to perform the dissection at the console. A robotic grasper used to hold the gallbladder at the dome of the gallbladder was elevated over the right half of the liver towards the right shoulder. There were no adhesions the gallbladder wall and there is no thickening of the gallbladder wall. A 2nd grasper was then used to hold the gallbladder infundibulum. The infundibular gallbladder was wrapped and some visceral adipose tissue and then I started dissection by incising the visceral adipose tissue with the robotic hook cautery. I then dissected down to the wall the gallbladder at the infundibulum. I then proceeded to strip down the visceral peritoneum until I identified the cystic duct. The cystic duct was then dissected out circumferentially. Cystic artery was then identified and dissected out carefully circumferentially as well. Posterior wall the gallbladder at the lower 3rd of the gallbladder was then dissected free liver until the critical view was obtained. At this point I then used firefly to confirm that the cystic duct appeared to be entering the gallbladder distally proximally it did attached to the common bile duct. Two and only 2 structures were entering the gallbladder. I then placed 2 robotic clips proximally cystic duct and 1 distally high on infundibular gallbladder. Cystic duct was divided with robotic hook cautery on pure cut. The cystic artery was then clipped and divided in similar fashion. The gallbladder was then resected off of the liver utilizing a hook robotic dissection. There was no spillage of any bile or gallstones. Once the gallbladder was completely released from liver is placed into an Endo-Catch bag and brought out through the left upper quadrant 10mm trocar port site. The gallbladder had palpable stones within it. The gallbladder was sent to pathology for examination. I then checked with firefly there is no evidence of bile leak from the liver bed. There was no bleeding from the liver bed. I then had the robotic instruments removed from the abdomen in the near the Marcelino robot was then docked from the patient's bedside. I then scrubbed back into the procedure and proceeded to and proceeded to close the left upper quadrant trocar port 10mm fascial defect utilizing 0 Vicryl suture and a suture Passer. All the trocar ports were then removed under visualization all port sites appeared hemostatic. The abdomen was then allowed to decompress. The port sites were then irrigated sterile saline solution hemostasis was good. I then proceeded to close all the port sites at the skin level utilizing a running subcuticular 4-0 Monocryl suture. Incision was then cleaned and skin glue was applied. The patient tolerated the procedure well no complications. All sponges, needles, and instrument counts were correct at the end procedure. EBL was _10__cc. The patient was awakened and taken to recovery in stable and satisfactory condition. Implants None Estimated Blood Loss 10 Drains No Packing No Pathology Yes (Gallbladder and gallstones to pathology) Complications No immediate complications Condition Stable Disposition PACU [facility] Billing Surgery - Charge Forward: Surgery Billing
[2025-01-09] MEDS: fentaNYL CITRATE INJ (*CRX) 100 MCG/2 ML VIAL 25 MCG IV PUSH ×4 (15:42→16:01)
[2025-01-09] MEDS: oxyCODONE HCL (*CRX) 5 MG TAB IR PO (16:35)
== END 2025-01-09 17:20 | disposition home or self-care (01) ==
PROVIDERS: PCP Nurse Practitioner Family; Visit Provider Surgery
PROC: 0FT44ZZ Resection of Gallbladder, Percutaneous Endoscopic Approach (ICD-10-PCS; CPT 47562; principal; 2025-01-09 13:00)
DX: K80.10 Calculus of gallbladder with chronic cholecystitis without obstruction (principal); F17.210 Nicotine dependence, cigarettes, uncomplicated; F12.90 Cannabis use, unspecified, uncomplicated; E66.9 Obesity, unspecified; Z68.38 Body mass index [BMI] 38.0-38.9, adult
CPT/HCPCS: 47562; S2900; 88304; A9270; J1100; J1885; J2004; J2250; J2405; J2704; J3010; J7030; J7120